=== PATIENT | female | born 1970 | race Two or more races ===

== ENCOUNTER → 2018-03-07 | Outpatient (CLI) | payer OTHER ==
--- NOTE | 2018-03-07 10:55 | MR ---
"EXAMINATION TYPE: MR lumbar spine wo/w con DATE OF EXAM: 03/07/2018 COMPARISON: NONE HISTORY: Lumbago w/sciatica TECHNIQUE: Multiplanar, multisequence images of the lumbar spine were acquired utilizing [address] gadolinium contrast. FINDINGS: There is abnormal diffuse decreased signal on the L1 vertebral body more pronounced at the mid and inferior vertebral body with abnormal decreased T2 signal in the normal enhancement throughou t. Similar findings are also appreciated within the T11 vertebral body such as on T1 nonfat sat sagit danielle image 7 and postcontrast image 9 in addition to Schmorl's node formation of the superior endplate . Findings are highly concerning for metastatic disease in this patient with a history of breast canc er. Remainder of the bone marrow signal appears mildly heterogenous but within normal limits. Additio lynne there is bowing of the posterior inferior cortex of the L1 vertebral body, partially related to pathologic bone marrow replacement and partially related to degenerative disc disease with inferior Schmorl's node formation. At L1 there is extent of the abnormal bone marrow signal into the left pedi oneal with expansion of the left pedicle. Multilevel small perineural cysts are present. The conus medullaris is unremarkable terminating at L1. Multilevel disc desiccation is seen throughou t the lumbar spine. T12-L1: There is disc desiccation without focal disc herniation, spinal canal stenosis or neural fora bria narrowing. L1-L2: Expansion of the left lateral inferior vertebral body of L1 and pedicle create severe left ryan ral foraminal narrowing in combination with degenerative disc disease. The right neural foramen is pa tent. There is mild spinal canal stenosis at the left lateral margin of the spinal canal secondary to the above findings. L2-L3: There is a small broad-based disc bulge without neural foraminal narrowing or spinal canal anmol nosis. L3-L4: There is a small broad-based disc bulge without spinal canal stenosis or neural foraminal narr owing. L4-L5: A small broad-based disc bulge is present in combination with facet arthropathy and ligamentum flavum buckling however there is no spinal canal stenosis or neural foraminal narrowing appreciated. L5-S1: A bilobed broad-based disc bulge is seen without significant spinal canal stenosis or neural f oraminal narrowing. Mild facet arthropathy and ligamentum flavum buckling are also present. IMPRESSION: 1. Abnormal bone marrow signal and enhancement of the L1 vertebral body with expansion and extent int o the pedicle creating severe left neural foraminal narrowing and mild left lateral spinal canal sten osis. Finding is highly suspicious for metastatic disease in this patient with a history of breast ca ncer as there is also abnormal enhancement. 2. Abnormal bone marrow signal and enhancement of the T11 vertebral body also highly suspicious for m etastatic disease. 3. Multilevel degenerative disc disease, mild in degree without additional regions of spinal canal st enosis or neural foraminal narrowing. A Yellow level critical message alert has been initiated for Benjamin Villarreal MD via the [employer] 36 0 | Critical Results System on 03/07/2018 10:52 AM. This message alert has been sent to Benjamin Villarreal MD via the preferences provided by the clinician for the receipt of Radiology Critical Findings. Wy ssage ID [id number]."
== END | disposition home or self-care (01) ==
LOC: RADMRIMAIN 07:40
PROVIDERS: ATTEND Family Medicine
DX: M48.061 Spinal stenosis, lumbar region without neurogenic claudication (principal); M99.73 Connective tissue and disc stenosis of intervertebral foramina of lumbar region; M51.16 Intervertebral disc disorders with radiculopathy, lumbar region; R93.7 Abnormal findings on diagnostic imaging of other parts of musculoskeletal system
CPT/HCPCS: 72158; A9581

== ENCOUNTER → 2018-03-25 | Outpatient (CLI) | payer OTHER ==
--- NOTE | 2018-03-25 12:48 | CT ---
EXAMINATION TYPE: CT ChestAbdPelvis w con DATE OF EXAM: 03/25/2018 COMPARISON: Prior PET/CT February 19, 2015. HISTORY: Follow up breast cancer diagnosed 2014, recent abnormal lumbar spine MRI. CT DLP: 1839 mGycm. Automated Exposure Control for Dose Reduction was Utilized. CONTRAST: CT scan of the thorax, abdomen and pelvis is performed with IV Contrast, patient injected with 100 mL of Isovue 300. FINDINGS: LUNGS: There are innumerable scattered nodules involving bilateral upper and lower lungs consistent w ith metastatic disease, one of largest posterior right upper lobe measures 1.4 x 1.2 cm axial image 1 5. For reference largest heterogeneous lobulated nodule or mass is in the medial left lung base measu ring 4.1 x 3.7 cm axial image 41. There is incidental azygos lobe/fissure. MEDIASTINUM: There are no greater than 1 cm hilar or mediastinal lymph nodes. No pericardial effusi on is seen. OTHER: Left-sided mastectomy with subpectoral breast implant is noted. LIVER/GB: There are new innumerable oval heterogeneous hypodense lesions throughout the liver consist ent with metastatic disease, for reference there is 6.0 cm lesion long axis and the right hepatic lob e axial image 51. PANCREAS: No significant abnormality is seen. SPLEEN: Subcentimeter splenule anterior splenic hilum on axial image 50 is redemonstrated. ADRENALS: No significant abnormality is seen. KIDNEYS: No significant abnormality is seen. BOWEL: Oral contrast does not reach colonic level. No suspicious small or large bowel dilatation is s een. GENITAL ORGANS: No gross abnormality seen. LYMPH NODES: No greater than 1cm abdominal or pelvic lymph nodes are appreciated. OSSEOUS STRUCTURES: Diffuse osseous metastatic disease is present. There is destructive expansile les ion involving posterior lateral right sixth rib near axial image 23 noted. There is destructive lesio n involving the left L1 vertebra with moderate compression, there is some extension into the neural f oramina and anterior lateral spinal canal seen on axial image 63. This correlates with recent MRI lum bar spine March 07, 2018. There is additional lytic lesion involving right T11 vertebra coronal image 5 5. OTHER: No significant additional abnormality is seen. IMPRESSION: There is new hepatic, osseous, and pulmonary metastatic disease as detailed above.
--- NOTE | 2018-03-25 14:43 | NM ---
EXAMINATION TYPE: NM bone scan whole body DATE OF EXAM: 03/25/2018 COMPARISON: CT dated 03/25/2019 HISTORY: C50.819 Breast Cancer,Z03.89 Observe for Mets Delayed whole-body scanning was performed following the injection of 26.1 mCi Tc 99m MDP. Images acq uired 4.5 hours post injection. FINDINGS: 2 warm foci of increased radiotracer accumulation are noted to involve the right posterior and tibco developer olateral rib #6. No additional abnormal uptake involving the ribs are seen. There is pedicular uptake noted to involve L1 and more diffuse uptake noted to involve T11. Given CT findings the examination is compatible metastatic disease. No additional areas of abnormal increased radiotracer accumulation are seen. Mild degenerative uptake in the shoulders, sternoclavicular joints noted. IMPRESSION: 1. Findings compatible with metastatic disease to the right rib #6, T11 and L1.
== END ==
LOC: RADCTMAIN 07:49
PROVIDERS: ATTEND Internal Medicine Hematology & Oncology
DX: C50.819 Malignant neoplasm of overlapping sites of unspecified female breast (principal); C79.51 Secondary malignant neoplasm of bone; C78.7 Secondary malignant neoplasm of liver and intrahepatic bile duct; C78.01 Secondary malignant neoplasm of right lung; C78.02 Secondary malignant neoplasm of left lung
CPT/HCPCS: 71260; 74177; 78306; A9503; Q9967

== ENCOUNTER → 2018-04-08 | Day surgery (SDC) | payer OTHER ==
[2018-04-08 09:19] VITALS: RESP 16; TEMP 98.1
[2018-04-08 09:30] LABS: Mean Platelet Volume 6.5; Platelet Count 194 k/uL (150-450)
[2018-04-08 09:31] LABS: INR 0.9 (<1.2); Prothrombin Time 9.3 sec (9.0-12.0)
[2018-04-08 15:19] VITALS: PULSE 84
[2018-04-08 15:23] VITALS: BP 94/54
--- NOTE | 2018-04-08 15:23 | US ---
EXAMINATION TYPE: US biopsy liver DATE OF EXAM: 04/08/2018 HISTORY: Liver mass. FINDINGS: Maximal barrier technique was utilized. The skin overlying a suitable path to the patient' s mass was localized with ultrasound and the overlying skin prepped and draped. Ultrasound was utili zed with sterile technique. Lidocaine was used for local anesthesia. A skin parminder was made with a sc alpel. An 18-gauge needle was advanced under direct ultrasound guidance and core specimen obtained o f the mass within the right lobe. Specimen submitted in formalin to Pathology. Following the proced ure, hemostasis achieved and the patient is discharged in stable condition without complication. IMPRESSION:STATUS POST ULTRASOUND GUIDED CORE BIOPSY OF liver MASS, PATHOLOGY IS PENDING. THIS PROCE DURE IS PERFORMED BY THE UNDERSIGNED.
== END | disposition home or self-care (01) ==
LOC: RADPROMAIN 08:52
PROVIDERS: ATTEND Internal Medicine Hematology & Oncology
DX: C78.7 Secondary malignant neoplasm of liver and intrahepatic bile duct (principal); C50.919 Malignant neoplasm of unspecified site of unspecified female breast
CPT/HCPCS: 47000; 76942; 85049; 85610; 88307; 88341; 88342

== ENCOUNTER → 2018-04-15 | Outpatient (CLI) | payer OTHER ==
--- NOTE | 2018-04-15 12:13 | CT ---
EXAMINATION TYPE: CT angio chest DATE OF EXAM: 04/15/2018 COMPARISON: 03/25/2018 HISTORY: Shortness of Breath CT DLP: 493 mGycm. Automated Exposure Control for Dose Reduction was Utilized. CONTRAST: CTA scan of the thorax is performed with IV Contrast, patient injected with 100 ml mL of Isovue 370, pulmonary embolism protocol. MIP Images are created on CT scanner and reviewed. FINDINGS: LUNGS: There is continued progression of metastatic disease with innumerable pulmonary nodules and th e largest in the left lung base previously measuring 3.7 x 4.1 cm and now measuring 4.5 x 5.5 cm. The re is also partial visualization of the innumerable hepatic metastases that are better defined on the prior examination given phase of contrast although the largest right hepatic lobe lesion appeared to measure 6.0 cm on the prior exam and currently measures approximately 6.2 cm. Incidental note of an azygous lobe and azygous fissure are again noted. Destructive metastatic right fifth rib lesion creates pleural thickening. No new pleural effusion or pneumothorax. MEDIASTINUM: There is satisfactory enhancement of the pulmonary artery and its branches, there is no CT evidence for pulmonary embolism. Mediastinal adenopathy is most pronounced in the hilar regions wi th the largest conglomeration in the left infrahilar region measuring 1.8 cm and within the right hil ar region measuring 1.6 cm. Subcarinal adenopathy is also seen with prominent paratracheal lymph node s. No cardiomegaly or pericardial effusion is seen. OTHER: Left breast implant is incidentally identified. Multifocal osseous metastasis as seen on the p rior chest, abdomen and pelvis CT dated 03/25/2018 is only partially visualized at the T11 vertebral l evel in addition to the previously described right fifth rib destructive lesion. IMPRESSION: 1. No evidence of pulmonary embolus. 2. Progression of metastatic disease with redemonstration of innumerable pulmonary nodules and hepati c metastasis as well as multifocal osseous metastasis. The largest left basilar pulmonary nodule now measures up to 4.1 cm and previously measured up to 5.5 cm. Findings discussed with the ordering phys joe at 1210 on 04/15/2018.
== END | disposition home or self-care (01) ==
LOC: RADCTMAIN 10:39
PROVIDERS: ATTEND Radiology Radiation Oncology
DX: C78.7 Secondary malignant neoplasm of liver and intrahepatic bile duct (principal); C79.51 Secondary malignant neoplasm of bone; C80.1 Malignant (primary) neoplasm, unspecified; R91.1 Solitary pulmonary nodule; R06.02 Shortness of breath; Z88.0 Allergy status to penicillin
CPT/HCPCS: 71275; Q9967

== ENCOUNTER → 2018-05-05 | Outpatient (CLI) | payer OTHER ==
--- NOTE | 2018-05-05 12:09 | CT ---
EXAMINATION TYPE: CT angio chest DATE OF EXAM: 05/05/2018 COMPARISON: 04/15/2018 HISTORY: 47-year-old female SOB, history of lung CA TECHNIQUE: Contiguous axial scanning of the chest performed with IV Contrast, patient injected with 5 6 mL of Isovue 370. Coronal/sagittal MIP reconstructions performed. CT DLP: 183.0 mGycm Automated exposure control for dose reduction was used. FINDINGS: Left breast implant is redemonstrated. Heart upper limits of normal in size without pericardial effusion. Aorta normal caliber with bowing configuration to the aortic arch. There are similar prominent 1.2 cm subcarinal lymph node. Otherwise, no thoracic lymphadenopathy seen. Innumerable bilateral pulmonary metastases redemonstrated showing increasing size from prior exam, fo r example, confluent nodules in the left upper lobe now measure up to 3.1 cm versus 2.7 cm on 04/15/20 18, nodule in the superior segment right lower lobe measures 2.1 cm versus 1.7 cm, previously, larges t mass medial left base measures 5.9 cm versus 5.6 cm, previously. Normal variant azygos fissure. Satisfactory opacification of the pulmonary arterial system without evidence for pulmonary embolus. Destructive soft tissue lesion of the posterolateral right fifth rib is slightly larger measuring up to 1.9 cm thick versus 1.7 cm, previously. Numerous hepatic metastases are redemonstrated, largest measuring at least 6.3 cm relatively stable f rom prior. Hilar splenule is noted. Scattered lytic lesions throughout the spine are redemonstrated particularly on the right at T1 and T 5 probably at L1 also, only partially visualized. IMPRESSION: 1. NO EVIDENCE FOR PULMONARY EMBOLUS. 2. SEVERE BURDEN OF METASTATIC DISEASE TO THE LUNGS. THERE ARE INNUMERABLE NODULES AND MASSES WHICH A RE INCREASING IN SIZE COMPARED TO 04/15/2018, LARGEST NOW MEASURING 5.9 CM AT THE LEFT BASE. 3. DESTRUCTIVE SOFT TISSUE METASTASIS INVOLVING THE RIGHT POSTERIOR FIFTH RIB IS SLIGHTLY LARGER. 4. MULTIPLE HEPATIC METASTASES REDEMONSTRATED AND A FEW LYTIC METASTASES WITHIN THE THORACIC SPINE AL SO REDEMONSTRATED.
== END | disposition home or self-care (01) ==
LOC: RADCTMAIN 11:28
PROVIDERS: ATTEND Internal Medicine Hematology & Oncology
DX: C78.01 Secondary malignant neoplasm of right lung (principal); C78.02 Secondary malignant neoplasm of left lung; C79.89 Secondary malignant neoplasm of other specified sites; C78.7 Secondary malignant neoplasm of liver and intrahepatic bile duct; C79.51 Secondary malignant neoplasm of bone; C80.1 Malignant (primary) neoplasm, unspecified; R91.8 Other nonspecific abnormal finding of lung field; Z88.0 Allergy status to penicillin
CPT/HCPCS: 71275; Q9967

== ENCOUNTER 2018-05-16 22:35 | Observation (INO) | payer OTHER ==
[2018-05-16] MEDS ORDERED: SODIUM CHLORIDE 0.9% 1,000 ML IV SCH (23:00)
[2018-05-16 23:41] LABS: Basophils # (A) 0.1 k/uL (0-0.2); Basophils % (A) 0 %; Eosinophils # (A) 0.2 k/uL (0-0.7); Eosinophils % (A) 1 %; HCT 38.6 % (34.0-46.0); HGB 12.4 gm/dL (11.4-16.0); Lymphocytes % (A) 10 %; MCH 28.3 pg (25.0-35.0); MCHC 32.1 g/dL (31.0-37.0); MCV 88.2 fL (80.0-100.0); Mean Platelet Volume 7.5; Monocytes # (A) 1.3 k/uL (0-1.0); Monocytes % (A) 7 %; Neutrophils # (A) 16.3 k/uL (1.3-7.7); Neutrophils % (A) 81 %; Platelet Count 301 k/uL (150-450); RBC 4.38 m/uL (3.80-5.40); RDW 15.7 % (11.5-15.5); WBC 20.1 k/uL (3.8-10.6)
[2018-05-16 23:48] LABS: INR 1.1 (<1.2); Partial Thromboplastin Time 23.1 sec (22.0-30.0); Prothrombin Time 10.9 sec (9.0-12.0)
[2018-05-16 23:51] LABS: ALT 65 U/L (9-52); AST 223 U/L (14-36); Alkaline Phosphatase 563 U/L (38-126); Anion Gap 10 mmol/L; Blood Urea Nitrogen 3 mg/dL (7-17); Calcium 8.5 mg/dL (8.4-10.2); Carbon Dioxide 21 mmol/L (22-30); Chloride 104 mmol/L (98-107); Glucose 111 mg/dL (74-99); Potassium 3.8 mmol/L (3.5-5.1); Sodium 135 mmol/L (137-145); Total Bilirubin 2.1 mg/dL (0.2-1.3); Total Protein 7.5 g/dL (6.3-8.2)
[2018-05-17] MEDS: SODIUM CHLORIDE 0.9% 500 ML IV SCH (00:20)
--- NOTE | 2018-05-17 00:22 | ED ---
General Adult HPI - General Chief complaint: Shortness of Breath Stated complaint: Diff breathing, anxiety Time Seen by Provider: 05/16/18 22:51 Source: patient, family Mode of arrival: ambulatory Limitations: no limitations - History of Present Illness Initial comments: Cinda is a 47 yo female with recently diagnosed stage 4 metastatic breast cancer , she has recently undergone radiation therapy for treatment of spinal mets and is planning to begin chemotherapy next week. Patient is brought to the ED today by her family due to difficulty breathing. Patient reports she feels like she cannot catch her breath. She denies any recent fevers, chills, she states that she has nearly continuous nausea but no vomiting. Family expresses concern that she has not been eating or drinking well. Patient denies any abdominal pain patient reports she can feel her heart racing but denies any chest pain. She denies any previous cardiac history. She reports a prior to the diagnosis of breast cancer she was healthy and not on any medications. - Related Data Home Medications Medication Instructions Recorded Confirmed No Known Home Medications 05/16/18 05/16/18 Allergies Allergy/AdvReac Type Severity Reaction Status Date / Time Penicillins AdvReac shaky Verified 05/16/18 23:07 Review of Systems ROS Statement: Those systems with pertinent positive or pertinent negative responses have been documented in the HPI. ROS Other: All systems not noted in ROS Statement are negative. Constitutional: Denies: fever ENT: Denies: throat pain Respiratory: Reports: dyspnea. Denies: cough, wheezes, hemoptysis Cardiovascular: Reports: palpitations Endocrine: Reports: fatigue Gastrointestinal: Reports: nausea. Denies: abdominal pain, vomiting Genitourinary: Denies: urgency, dysuria Musculoskeletal: Reports: back pain Skin: Reports: other (Pallor). Denies: rash Neurological: Reports: weakness (Generalized) Psychiatric: Denies: anxiety, depression Hematological/Lymphatic: Reports: easy bleeding, easy bruising Past Medical History Past Medical History: Cancer Additional Past Medical History / Comment(s): breast, Liver mass and vertebrae mass History of Any Multi-Drug Resistant Organisms: None Reported Past Surgical History: Tubal Ligation Additional Past Surgical History / Comment(s): breast biopsy, left mastectomy Past Anesthesia/Blood Transfusion Reactions: No Reported Reaction Past Psychological History: Anxiety, Depression Smoking Status: Never smoker Past Alcohol Use History: None Reported Past Drug Use History: None Reported - Past Family History Sister(s) Family Medical History: Deep Vein Thrombosis (DVT) General Exam Limitations: no limitations General appearance: alert, in distress Head exam: Present: atraumatic, normocephalic Eye exam: Present: normal appearance, PERRL ENT exam: Present: normal exam Neck exam: Present: normal inspection Respiratory exam: Present: other (Tachypnea). Absent: wheezes Cardiovascular Exam: Present: tachycardia GI/Abdominal exam: Present: soft Rectal exam: Present: deferred Extremities exam: Present: full ROM Neurological exam: Present: alert, oriented X3 Psychiatric exam: Present: normal affect, normal mood Skin exam: Present: warm, dry, pallor Course Vital Signs 05/16/18 05/16/18 05/16/18 22:37 22:56 23:31 Temperature 99 F Pulse Rate 137 H 121 H Respiratory 20 24 22 Rate Blood Pressure 111/75 127/62 O2 Sat by Pulse 92 L 97 Oximetry - Reevaluation(s) Reevaluation #1: Patient tachycardia improving after IV fluids, patient's oxygen saturation 97-99 % with blow-by oxygen 05/17/18 01:03 EKG Findings - EKG Comments: EKG Findings:: EKG at 2315 rate is 128, there is a poor baseline, leads V2 and V3 appear to have P waves but this is not evident in all leads, it is a narrow complex tachycardia with a PVC noted Medical Decision Making - Medical Decision Making The patient was seen and evaluated, history was obtained from the patient and her family at bedside. This is a patient with known metastatic disease, undergoing radiation therapy, scheduled to begin chemotherapy. Not currently immunocompromised with a high risk for pulmonary embolus him Labs and imaging were ordered Labs with multiple significant abnormalities including leukocytosis of unknown cause Also noted to have elevated transaminase levels, likely related to her metastatic disease Troponin is negative CT of the chest reveals diffuse metastatic disease but no evidence of acute pulmonary embolism Patient was reevaluated after receiving IV fluids her tachycardia has improved to the 1 teens, she is receiving blow-by oxygen because she will not tolerate a nasal cannula. Oxygen saturations are now in the high 90s. Patient remains slightly tachypneic and continues to complain of pain in her back. The medication was ordered At this time and will fill the patient is safe for discharge home, I feel that considering her new requirement for oxygen, her tachypnea, tachycardia and her diffuse metastatic disease she does warrant admission to the hospital. I will admit the patient to the selective floor for telemetry and continuous pulse ox monitoring. The patient's oncologist Dr. Anna was consulted to evaluate the patient while she is admitted - Lab Data Result diagrams: 05/16/18 23:25 05/16/18 23:25 Lab Results 05/16/18 05/16/18 05/16/18 Range/Units 23:25 23:25 23:25 WBC 20.1 H (3.8-10.6) k/uL RBC 4.38 (3.80-5.40) m/uL Hgb 12.4 (11.4-16.0) gm/dL Hct 38.6 (34.0-46.0) % MCV 88.2 (80.0-100.0) fL MCH 28.3 (25.0-35.0) pg MCHC 32.1 (31.0-37.0) g/dL RDW 15.7 H (11.5-15.5) % Plt Count 301 (150-450) k/uL Neutrophils % 81 % Lymphocytes % 10 % Monocytes % 7 % Eosinophils % 1 % Basophils % 0 % Neutrophils # 16.3 H (1.3-7.7) k/uL Lymphocytes # 2.0 (1.0-4.8) k/uL Monocytes # 1.3 H (0-1.0) k/uL Eosinophils # 0.2 (0-0.7) k/uL Basophils # 0.1 (0-0.2) k/uL PT (9.0-12.0) sec INR (<1.2) APTT (22.0-30.0) sec Sodium 135 L (137-145) mmol/L Potassium 3.8 (3.5-5.1) mmol/L Chloride 104 (98-107) mmol/L Carbon Dioxide 21 L (22-30) mmol/L Anion Gap 10 mmol/L BUN 3 L (7-17) mg/dL Creatinine 0.30 L (0.52-1.04) mg/dL Est GFR (CKD-EPI)AfAm >90 (>60 ml/min/1.73 sqM) Est GFR (CKD-EPI)NonAf >90 (>60 ml/min/1.73 sqM) Glucose 111 H (74-99) mg/dL Plasma Lactic Acid Sander 2.0 (0.7-2.0) mmol/L Calcium 8.5 (8.4-10.2) mg/dL Total Bilirubin 2.1 H (0.2-1.3) mg/dL AST 223 H (14-36) U/L ALT 65 H (9-52) U/L Alkaline Phosphatase 563 H (38-126) U/L Troponin I (0.000-0.034) ng/mL Total Protein 7.5 (6.3-8.2) g/dL Albumin 3.0 L (3.5-5.0) g/dL Urine Color Urine Appearance (Clear) Urine pH (5.0-8.0) Ur Specific Volcano (1.001-1.035) Urine Protein (Negative) Urine Glucose (UA) (Negative) Urine Ketones (Negative) Urine Blood (Negative) Urine Nitrite (Negative) Urine Bilirubin (Negative) Urine Urobilinogen (<2.0) mg/dL Ur Leukocyte Esterase (Negative) 05/16/18 05/16/18 05/17/18 Range/Units 23:25 23:25 00:22 WBC (3.8-10.6) k/uL RBC (3.80-5.40) m/uL Hgb (11.4-16.0) gm/dL Hct (34.0-46.0) % MCV (80.0-100.0) fL MCH (25.0-35.0) pg MCHC (31.0-37.0) g/dL RDW (11.5-15.5) % Plt Count (150-450) k/uL Neutrophils % % Lymphocytes % % Monocytes % % Eosinophils % % Basophils % % Neutrophils # (1.3-7.7) k/uL Lymphocytes # (1.0-4.8) k/uL Monocytes # (0-1.0) k/uL Eosinophils # (0-0.7) k/uL Basophils # (0-0.2) k/uL PT 10.9 (9.0-12.0) sec INR 1.1 (<1.2) APTT 23.1 (22.0-30.0) sec Sodium (137-145) mmol/L Potassium (3.5-5.1) mmol/L Chloride (98-107) mmol/L Carbon Dioxide (22-30) mmol/L Anion Gap mmol/L BUN (7-17) mg/dL Creatinine (0.52-1.04) mg/dL Est GFR (CKD-EPI)AfAm (>60 ml/min/1.73 sqM) Est GFR (CKD-EPI)NonAf (>60 ml/min/1.73 sqM) Glucose (74-99) mg/dL Plasma Lactic Acid Sander (0.7-2.0) mmol/L Calcium (8.4-10.2) mg/dL Total Bilirubin (0.2-1.3) mg/dL AST (14-36) U/L ALT (9-52) U/L Alkaline Phosphatase (38-126) U/L Troponin I <0.012 (0.000-0.034) ng/mL Total Protein (6.3-8.2) g/dL Albumin (3.5-5.0) g/dL Urine Color Yellow Urine Appearance Clear (Clear) Urine pH 7.0 (5.0-8.0) Ur Specific Volcano 1.005 (1.001-1.035) Urine Protein Negative (Negative) Urine Glucose (UA) Negative (Negative) Urine Ketones 1+ H (Negative) Urine Blood Negative (Negative) Urine Nitrite Negative (Negative) Urine Bilirubin Negative (Negative) Urine Urobilinogen <2.0 (<2.0) mg/dL Ur Leukocyte Esterase Negative (Negative) Disposition Clinical Impression: Shortness of breath at rest, Hypoxia, Metastatic breast cancer, Elevated transaminase level, Leukocytosis, SIRS (systemic inflammatory response syndrome) Disposition: ADMITTED IP TO THIS HOSP Condition: Poor Instructions: Generalized Anxiety Disorder (ED) Referrals: Benjamin Villarreal MD [Primary Care Provider] - 1-2 days Decision Time: 01:18
[2018-05-17 00:27] LABS: Appearance,Urine Clear (Clear); Bilirubin,Urine Negative (Negative); Blood,Urine Negative (Negative); Color,Urine Yellow; Glucose,Urine (UA) Negative (Negative); Ketones,Urine 1+ (Negative); Leukocyte Esterase,Urine Negative (Negative); Nitrite,Urine Negative (Negative); Protein,Urine Negative (Negative); Specific Gravity,Urine 1.005 (1.001-1.035); Urobilinogen,Urine <2.0 mg/dL (<2.0)
--- NOTE | 2018-05-17 01:06 | CT ---
EXAMINATION TYPE: CT chest angio for PE DATE OF EXAM: 05/17/2018 COMPARISON: 05/05/2018 HISTORY: R/O PE, Rt side paib, back pain CT DLP: 311.10 mGycm Automated exposure control for dose reduction was used. CONTRAST: CT Chest for pulmonary embolism performed with with IV Contrast, patient injected with 60 mL of Isovu e 370. FINDINGS: There are 3-D post processed images. There are numerous nodular masslike densities throughout the lungs that measure up to 3 cm. There is conglomeration. Heart size is normal. There is no pericardial effusion. There is no pleural effusion. Thoracic aorta is intact. I see no filling defects in the pulmonary arteries. There are destructive changes in T11 and T5 vertebral bodies. There is variable enhancement of the liver consistent with mu ltiple masses. IMPRESSION: No evidence of pulmonary embolism. Extensive pulmonary metastatic disease. Extensive hepatic metastat ic disease. Thoracic vertebral body metastatic disease. No significant change compared to last exam.
[2018-05-17] MEDS ORDERED: NALOXONE 0.4 MG/ML 1 ML VIAL IV PRN (01:18)
[2018-05-17] MEDS ORDERED: MORPHINE SULFATE 4 MG/ML SYRINGE IVP STA (01:21)
[2018-05-17] MEDS ORDERED: SODIUM CHLORIDE 0.9% 1,000 ML IV SCH (01:30)
[2018-05-17] MEDS ORDERED: IBUPROFEN 600 MG TAB PO PRN (01:52)
[2018-05-17] MEDS ORDERED: HYDROcodone/APAP 5-325MG 1 EACH TAB PO PRN (01:55)
[2018-05-17] MEDS ORDERED: ONDANSETRON 4 MG/2 ML VIAL IVP STA (02:16)
[2018-05-17 04:16] VITALS: TEMP 97.6
[2018-05-17 07:40] VITALS: RESP 18
[2018-05-17 08:56] VITALS: BP 102/63; PULSE 102
--- NOTE | 2018-05-17 21:10 | P.HPIM ---
History of Present Illness Patient Left AMA Past Medical History Past Medical History: Cancer Additional Past Medical History / Comment(s): breast, Liver mass and vertebrae mass History of Any Multi-Drug Resistant Organisms: None Reported Past Surgical History: Tubal Ligation Additional Past Surgical History / Comment(s): breast biopsy, left mastectomy Past Anesthesia/Blood Transfusion Reactions: No Reported Reaction Past Psychological History: Anxiety, Depression Smoking Status: Never smoker Past Alcohol Use History: None Reported Past Drug Use History: None Reported - Past Family History Sister(s) Family Medical History: Deep Vein Thrombosis (DVT) Medications and Allergies Home Medications Medication Instructions Recorded Confirmed Type HYDROcodone/APAP 5-325MG [Dixon 1 tab PO Q8HR PRN 05/17/18 05/17/18 History 5-325] Methocarbamol [Robaxin] 500 mg PO Q8HR PRN 05/17/18 05/17/18 History Allergies Allergy/AdvReac Type Severity Reaction Status Date / Time Penicillins AdvReac shaky Verified 05/16/18 23:07 Physical Exam Vitals: Vital Signs Temp Pulse Resp BP Pulse Ox 05/17/18 11:15 90 L 05/17/18 10:00 18 88 L 05/17/18 08:54 102 H 18 102/63 99 05/17/18 07:38 111 H 18 132/68 92 L 05/17/18 07:11 100 20 102/63 95 05/17/18 05:08 96 20 101/60 93 L 05/17/18 04:13 97.6 F 102 H 18 101/61 96 05/17/18 02:22 111 H 20 116/70 99 05/17/18 01:16 99.2 F 110 H 20 115/71 95 05/16/18 23:31 121 H 22 127/62 97 05/16/18 22:56 24 05/16/18 22:37 99 F 137 H 20 111/75 92 L Results CBC & Chem 7: 05/16/18 23:25 05/16/18 23:25 Labs: Abnormal Lab Results - Last 24 Hours (Table) 05/16/18 05/16/18 05/17/18 Range/Units 23:25 23:25 00:22 WBC 20.1 H (3.8-10.6) k/uL RDW 15.7 H (11.5-15.5) % Neutrophils # 16.3 H (1.3-7.7) k/uL Monocytes # 1.3 H (0-1.0) k/uL Sodium 135 L (137-145) mmol/L Carbon Dioxide 21 L (22-30) mmol/L BUN 3 L (7-17) mg/dL Creatinine 0.30 L (0.52-1.04) mg/dL Glucose 111 H (74-99) mg/dL Total Bilirubin 2.1 H (0.2-1.3) mg/dL AST 223 H (14-36) U/L ALT 65 H (9-52) U/L Alkaline Phosphatase 563 H (38-126) U/L Albumin 3.0 L (3.5-5.0) g/dL Urine Ketones 1+ H (Negative) Microbiology - Last 24 Hours (Table) 05/17/18 00:22 Urine Culture - Preliminary Urine,Voided
--- NOTE | 2018-05-17 21:11 | P.DS ---
Providers Date of admission: 05/17/18 01:20 Attending physician: Justice Lafleur MD Consults: 05/17/18 01:19 Consult Physician Urgent Consulting Provider: Thiago Garay Consult Reason/Comments: established patient, worsening mets Do you want consulting provider notified?: Yes, Notify in am Primary care physician: Benjamin Villarreal [facility] Course: left AMA Patient Condition at Discharge: Poor Plan - Discharge Summary New Discharge Prescriptions: No Action Methocarbamol [Robaxin] 500 mg PO Q8HR PRN PRN Reason: Pain HYDROcodone/APAP 5-325MG [[place] 5-325] 1 tab PO Q8HR PRN PRN Reason: Pain Discharge Medication List HYDROcodone/APAP 5-325MG [[place] 5-325] 1 tab PO Q8HR PRN 05/17/18 [History] Methocarbamol [Robaxin] 500 mg PO Q8HR PRN 05/17/18 [History] Follow up Appointment(s)/Referral(s): Benjamin Villarreal MD [Primary Care Provider] - 1-2 days Patient Instructions/Handouts: Generalized Anxiety Disorder (ED) Discharge Disposition: Left Against Medical Advice
== END 2018-05-17 13:08 | disposition left against medical advice (07) ==
LOC: EC 22:35 → INTOOBSV 05-17 01:20 → 6SEL 05-17 01:20 → UNDODISIN 05-17 13:08
PROVIDERS: ADMIT Internal Medicine; ATTEND Internal Medicine
DX: R09.02 Hypoxemia (principal); C79.51 Secondary malignant neoplasm of bone; R65.10 Systemic inflammatory response syndrome (SIRS) of non-infectious origin without acute organ dysfunction; C78.7 Secondary malignant neoplasm of liver and intrahepatic bile duct; C50.912 Malignant neoplasm of unspecified site of left female breast; D72.829 Elevated white blood cell count, unspecified; F32.9 Major depressive disorder, single episode, unspecified; F41.9 Anxiety disorder, unspecified; Z90.12 Acquired absence of left breast and nipple; R11.0 Nausea; Z88.0 Allergy status to penicillin; R00.0 Tachycardia, unspecified; Z83.2 Family history of diseases of the blood and blood-forming organs and certain disorders involving the immune mechanism; Z92.3 Personal history of irradiation; R74.0 Nonspecific elevation of levels of transaminase and lactic acid dehydrogenase [LDH]; R06.82 Tachypnea, not elsewhere classified; Z53.21 Procedure and treatment not carried out due to patient leaving prior to being seen by health care provider
CPT/HCPCS: 96361; 96375; 99285; 96374; 36415; 93005; 80053; 83605; 84484; 85025; 85610; 85730; 81003; 87040; 87086; 71275; G0378; J2270; J2405; Q9967

== ENCOUNTER → 2018-07-03 | Outpatient (CLI) | payer OTHER ==
[2018-07-03 11:08] LABS: Blood Urea Nitrogen 3 mg/dL (7-17)
--- NOTE | 2018-07-03 15:15 | CT ---
EXAMINATION TYPE: CT ChestAbdPelvis w con DATE OF EXAM: 07/03/2018 COMPARISON: 05/17/2018 and 03/25/2018. HISTORY: 48-year-old female Follow up breast CA. Observe for metastases. TECHNIQUE: Contiguous axial scanning of the chest, abdomen, and pelvis performed with IV Contrast, pa tient injected with 100 mL of Isovue 300. Delayed images through the kidneys were obtained. Coronal/s agittal reconstructions performed. CT DLP: 1281 mGycm Automated exposure control for dose reduction was used. FINDINGS: Chest: Heart normal size without pericardial effusion. Aorta normal caliber with conventional arch vessel branching anatomy. No thoracic lymphadenopathy by CT size criteria. Prior left mastectomy and left breast reconstruction . Innumerable lateral pulmonary nodules and masses show treatment response with decrease in size of 2 n odules. For example, the dominant medial left basilar mass now measures 3.4 cm versus 6.1 cm, previou sly in the left upper lobe mass measures 1.2 cm versus 3.7 cm, previously. Normal variant azygous fissure. No consolidation or pleural effusion. ABDOMEN: Small hiatal hernia. Innumerable hepatic lesions. These show increasing hypodensity is compared to prior exam likely on th e basis of posttreatment effect largest in the peripheral right liver lobe measuring 6.1 cm versus 7. 4 cm, previously. Portal venous system is patent. No biliary ductal dilatation. Gallbladder, adrenal glands, kidneys, and pancreas appear within normal limits. Spleen is borderline enlarged at 13.9 cm with a hilar splenule. No dilated small bowel, free fluid, or free air. Normal appendix. Mild stool in the right-sided colon. The remainder of the colon is collapsed. No per icolonic inflammatory change. No mesenteric or retroperitoneal lymphadenopathy. Pelvis: Bladder partially distended. Uterus and both ovaries are visualized. No abnormal fluid collection in the pelvis or pelvic lymphadenopathy. Bones: Destructive right fifth posterolateral rib lesion shows decreasing soft tissue bulk in some healing c hange of the rib. Redemonstrated lytic vertebral body lesions, especially T1 T5, T11, and L1 with progressive periphera l sclerosis and slight decrease in size suggesting treatment response. IMPRESSION: 1. STATUS POST LEFT MASTECTOMY AND BREAST RECONSTRUCTION. 2. PARTIAL OR EVOLVING TREATMENT RESPONSE WITH SIGNIFICANT IMPROVEMENT IN THE INNUMERABLE NODULES/MAS SES. FOR EXAMPLE, THE DOMINANT MEDIAL LEFT BASILAR MASS NOW MEASURES 3.4 CM VERSUS 6.1 CM. 3. MULTIPLE HEPATIC LESIONS ARE NOW HYPODENSE AND HAVE ALSO DECREASED IN SIZE, FOR EXAMPLE, IN THE PE RIPHERAL RIGHT LIVER LOBE MEASURING 6.1 CM VERSUS 7.4 CM, PREVIOUSLY. 4. THE RIGHT FIFTH RIB LESION HAS DECREASED SOFT TISSUE BULK AND NOW SHOWS SOME INTERVAL BONY HEALING CHANGE AND THE THORACIC AND L1 VERTEBRAL BODY LESIONS SHOW HEALING SCLEROSIS AND SLIGHT DECREASE IN SIZE.
== END | disposition home or self-care (01) ==
LOC: RADCTMAIN 10:39
PROVIDERS: ATTEND Internal Medicine Hematology & Oncology
DX: C50.819 Malignant neoplasm of overlapping sites of unspecified female breast (principal); K76.9 Liver disease, unspecified; R91.8 Other nonspecific abnormal finding of lung field
CPT/HCPCS: 82565; 84520; 71260; 74177; 36415; Q9967

== ENCOUNTER 2018-08-14 20:13 | Emergency (ER) | payer OTHER ==
[2018-08-14] MEDS ORDERED: ONDANSETRON 4 MG/2 ML VIAL IVP STA (20:34)
[2018-08-14] MEDS ORDERED: SODIUM CHLORIDE 0.9% 500 ML 500 ML IV STA (20:34)
[2018-08-14] MEDS: SODIUM CHLORIDE 0.9% 1,000 ML IV STA (20:44)
--- NOTE | 2018-08-14 21:06 | ED ---
General Adult HPI - General Chief complaint: Nausea/Vomiting/Diarrhea Stated complaint: vomiting Time Seen by Provider: 08/14/18 20:15 Source: patient, RN notes reviewed Mode of arrival: wheelchair Limitations: no limitations - History of Present Illness Initial comments: This is a 48-year-old female who presents emergency Department complaining of nausea and vomiting since Saturday after her chemotherapy treatment. Patient states she also has generalized weakness. Patient has breast cancer diagnosed in 2015 now has metastatic disease to her liver and back. Patient denies any fever chills. Patient denies any chest pain difficulty breathing shortest breath. Patient denies any abdominal pain patient denies nausea vomiting diarrhea. Patient denies any headache patient denies numbness weakness. - Related Data Home Medications Medication Instructions Recorded Confirmed HYDROcodone/APAP 5-325MG [[place] 1 tab PO Q8HR PRN 05/17/18 08/14/18 5-325] ALPRAZolam [Xanax] 0.5 mg PO DAILY PRN 08/14/18 08/14/18 Dexamethasone 8 mg PO DIRECTED 08/14/18 08/14/18 Furosemide [Lasix] 40 mg PO DAILY 08/14/18 08/14/18 Morphine Sulfate [Ms Contin] 15 mg PO Q12HR PRN 08/14/18 08/14/18 Ondansetron HCl [Zofran] 4 mg PO Q4-6H PRN 08/14/18 08/14/18 Potassium Chloride ER [K-Dur 20] 20 meq PO DAILY 08/14/18 08/14/18 Allergies Allergy/AdvReac Type Severity Reaction Status Date / Time Penicillins AdvReac shaky Verified 08/14/18 21:08 Review of Systems ROS Statement: Those systems with pertinent positive or pertinent negative responses have been documented in the HPI. ROS Other: All systems not noted in ROS Statement are negative. Past Medical History Past Medical History: Cancer Additional Past Medical History / Comment(s): breast, Liver mass and vertebrae mass History of Any Multi-Drug Resistant Organisms: None Reported Past Surgical History: Tubal Ligation Additional Past Surgical History / Comment(s): breast biopsy, left mastectomy Past Anesthesia/Blood Transfusion Reactions: No Reported Reaction Past Psychological History: Anxiety, Depression Smoking Status: Never smoker Past Alcohol Use History: None Reported Past Drug Use History: None Reported - Past Family History Sister(s) Family Medical History: Deep Vein Thrombosis (DVT) General Exam - General Exam Comments Initial Comments: GENERAL: Patient is well-developed and well-nourished. Patient is nontoxic and well- hydrated and is in mild distress. ENT: Neck is soft and supple. No significant lymphadenopathy is noted. Oropharynx is clear. Moist mucous membranes. EYES: The sclera were anicteric and conjunctiva were pink and moist. Extraocular movements were intact and pupils were equal round and reactive to light. Eyelids were unremarkable. PULMONARY: Unlabored respirations. Good breath sounds bilaterally. No audible rales rhonchi or wheezing was noted. CARDIOVASCULAR: There is a regular rate and rhythm without any murmurs gallops or rubs. ABDOMEN: Soft and nontender with normal bowel sounds. No palpable organomegaly was noted. There is no palpable pulsatile mass. SKIN: Skin is clear with no lesions or rashes and otherwise unremarkable. NEUROLOGIC: Patient is alert and oriented x3. Cranial nerves II through XII are grossly intact. Motor and sensory are also intact. Normal speech, volume and content. Symmetrical smile. MUSCULOSKELETAL: Normal extremities with adequate strength and full range of motion. LYMPHATICS: No significant lymphadenopathy is noted PSYCHIATRIC: Normal psychiatric evaluation. Limitations: no limitations Course Vital Signs 08/14/18 08/14/18 08/14/18 20:19 21:55 22:35 Temperature 97.8 F 98.2 F Pulse Rate 146 H 120 H 125 H Respiratory 18 16 15 Rate Blood Pressure 87/63 99/63 100/61 O2 Sat by Pulse 99 98 100 Oximetry Medical Decision Making - Medical Decision Making Patient received Zosyn and Reglan in the emergency department was able to tolerate water would like to go home at this point time. I suggested to the patient that she should stay she did not want to she insisted she would go home and follow-up as an outpatient - Lab Data Result diagrams: 08/14/18 20:50 08/14/18 20:50 Lab Results 08/14/18 08/14/18 08/14/18 Range/Units 20:50 20:50 21:45 WBC 54.7 H* (3.8-10.6) k/uL RBC 4.10 (3.80-5.40) m/uL Hgb 12.0 (11.4-16.0) gm/dL Hct 37.2 (34.0-46.0) % MCV 90.8 (80.0-100.0) fL MCH 29.4 (25.0-35.0) pg MCHC 32.4 (31.0-37.0) g/dL RDW 17.7 H (11.5-15.5) % Plt Count 140 L (150-450) k/uL Neutrophils % (Manual) 83 % Band Neutrophils % 17 % Lymphocytes % (Manual) 1 % Neutrophils # (Manual) 54.70 H (1.3-7.7) k/uL Lymphocytes # (Manual) 0.55 L (1.0-4.8) k/uL Nucleated RBCs 0 (0-0) /100 WBC Manual Slide Review Performed Toxic Granulation Present Anisocytosis Slight Sodium 138 (137-145) mmol/L Potassium 3.9 (3.5-5.1) mmol/L Chloride 107 (98-107) mmol/L Carbon Dioxide 21 L (22-30) mmol/L Anion Gap 10 mmol/L BUN 5 L (7-17) mg/dL Creatinine 0.30 L (0.52-1.04) mg/dL Est GFR (CKD-EPI)AfAm >90 (>60 ml/min/1.73 sqM) Est GFR (CKD-EPI)NonAf >90 (>60 ml/min/1.73 sqM) Glucose 113 H (74-99) mg/dL Calcium 8.2 L (8.4-10.2) mg/dL Total Bilirubin 1.4 H (0.2-1.3) mg/dL AST 35 (14-36) U/L ALT 22 (9-52) U/L Alkaline Phosphatase 229 H (38-126) U/L Total Protein 6.5 (6.3-8.2) g/dL Albumin 3.4 L (3.5-5.0) g/dL Amylase 33 (30-110) U/L Lipase 11 L (23-300) U/L Urine Color Yellow Urine Appearance Clear (Clear) Urine pH 6.0 (5.0-8.0) Ur Specific [place] 1.026 (1.001-1.035) Urine Protein 1+ H (Negative) Urine Glucose (UA) 1+ H (Negative) Urine Ketones 4+ H (Negative) Urine Blood Moderate H (Negative) Urine Nitrite Negative (Negative) Urine Bilirubin Negative (Negative) Urine Urobilinogen 2.0 (<2.0) mg/dL Ur Leukocyte Esterase Small H (Negative) Urine RBC 19 H (0-5) /hpf Urine WBC 15 H (0-5) /hpf Ur Squamous Epith Cells 3 (0-4) /hpf Urine Bacteria Rare H (None) /hpf Urine Mucus Few H (None) /hpf Disposition Clinical Impression: Acute vomiting Disposition: HOME SELF-CARE Condition: Good Instructions: Acute Nausea and Vomiting (ED) Is patient prescribed a controlled substance at d/c from ED?: No Referrals: Benjamin Villarreal MD [Primary Care Provider] - 1-2 days Time of Disposition: 23:19
[2018-08-14 21:12] LABS: ALT 22 U/L (9-52); AST 35 U/L (14-36); Albumin 3.4 g/dL (3.5-5.0); Alkaline Phosphatase 229 U/L (38-126); Amylase 33 U/L (30-110); Anion Gap 10 mmol/L; Blood Urea Nitrogen 5 mg/dL (7-17); Calcium 8.2 mg/dL (8.4-10.2); Carbon Dioxide 21 mmol/L (22-30); Chloride 107 mmol/L (98-107); Glucose 113 mg/dL (74-99); Lipase 11 U/L (23-300); Potassium 3.9 mmol/L (3.5-5.1); Sodium 138 mmol/L (137-145); Total Bilirubin 1.4 mg/dL (0.2-1.3); Total Protein 6.5 g/dL (6.3-8.2)
[2018-08-14 21:17] LABS: Anisocytosis Slight; HCT 37.2 % (34.0-46.0); MCH 29.4 pg (25.0-35.0); MCHC 32.4 g/dL (31.0-37.0); MCV 90.8 fL (80.0-100.0); Mean Platelet Volume 7.4; Platelet Count 140 k/uL (150-450); RDW 17.7 % (11.5-15.5)
[2018-08-14 21:23] LABS: WBC 54.7 k/uL (3.8-10.6)
[2018-08-14 21:41] LABS: Band Neutrophils % 17 %; Lymphocytes # (M) 0.55 k/uL (1.0-4.8); Neutrophils % (M) 83 %; Nucleated Red Blood Cells 0 /100 WBC (0-0); Total Cells Counted 200; Toxic Granulation Present
[2018-08-14 21:57] VITALS: TEMP 98.2
[2018-08-14 22:11] LABS: Appearance,Urine Clear (Clear); Bacteria,Urine Rare /hpf; Bilirubin,Urine Negative (Negative); Blood,Urine Moderate (Negative); Color,Urine Yellow; Glucose,Urine (UA) 1+ (Negative); Leukocyte Esterase,Urine Small (Negative); Mucus,Urine Few /hpf; Nitrite,Urine Negative (Negative); Protein,Urine 1+ (Negative); RBC,Urine 19 /hpf (0-5); Specific Gravity,Urine 1.026 (1.001-1.035); Squamous Epithelial Cell,Urine 3 /hpf (0-4); WBC,Urine 15 /hpf (0-5)
[2018-08-14 22:15] LABS: Ketones,Urine 4+ (Negative)
[2018-08-14] MEDS ORDERED: METOCLOPRAMIDE 5 MG/ML 2 ML VIAL IVP STA (22:33)
[2018-08-14 23:35] VITALS: BP 101/64; PULSE 120; RESP 16
== END 2018-08-14 23:44 | disposition home or self-care (01) ==
LOC: EC 20:13
DX: R11.2 Nausea with vomiting, unspecified (principal); R53.1 Weakness; R19.7 Diarrhea, unspecified; Z85.3 Personal history of malignant neoplasm of breast; Z85.05 Personal history of malignant neoplasm of liver; Z85.89 Personal history of malignant neoplasm of other organs and systems; Z92.21 Personal history of antineoplastic chemotherapy; Z79.52 Long term (current) use of systemic steroids; Z79.899 Other long term (current) drug therapy; Z88.0 Allergy status to penicillin
CPT/HCPCS: 99284; 96374; 96375; 96361; 36415; 80053; 82150; 83690; 85025; 81001; 87086; J2765; J2405

== ENCOUNTER → 2018-08-25 | Outpatient (CLI) | payer OTHER ==
--- NOTE | 2018-08-25 10:08 | ECHOF ---
Referral Reason:Z01.818 Encounter for other preprocedural examinat MEASUREMENTS -------- HEIGHT: 157.5 cm WEIGHT: 59.0 kg BP: RVIDd: 2.4 cm (< 3.3) IVSd: 1.2 cm (0.6 - 1.1) LVIDd: 4.4 cm (3.9 - 5.3) LVPWd: 0.9 cm (0.6 - 1.1) IVSs: 1.3 cm LVIDs: 3.6 cm LVPWs: 1.1 cm LA Diam: 3.1 cm (2.7 - 3.8) Ao Diam: 3.0 cm (2.0 - 3.7) AV Cusp: 2.2 cm (1.5 - 2.6) LA Diam: 2.8 cm (2.7 - 3.8) MV EXCURSION: 19.740 mm (> 18.000) MV EF SLOPE: 162 mm/s (70 - 150) EPSS: 0.6 cm MV E Ismael: 0.48 m/s MV DecT: 159 ms MV A Ismael: 0.66 m/s MV E/A Ratio: 0.72 RAP: 5.00 mmHg RVSP: 30.18 mmHg FINDINGS -------- Sinus rhythm. This was a technically good study. Pt. Has Breast inplants The left ventricular size is normal. Overall left ventricular systolic function is mild-moderately impaired with, an EF between 40 - 45 %. Anterseptal Hypokinesis The right ventricle is mildly enlarged. The left atrial size is normal. The right atrial size is normal. The aortic valve is trileaflet, and appears structurally normal. No aortic stenosis or regurgitation. Mild mitral regurgitation is present. Mild tricuspid regurgitation present. There is no evidence of pulmonary hypertension. The right v entricular systolic pressure, as measured by Doppler, is 30.18mmHg. There is no pulmonic regurgitation present. The aortic root size is normal. There is no pericardial effusion. CONCLUSIONS -------- 1. Pt. Has Breast inplants 2. The left ventricular size is normal. 3. Overall left ventricular systolic function is mild-moderately impaired with, an EF between 40 - 45 %. 4. Anterseptal Hypokinesis 5. The right ventricle is mildly enlarged. 6. The left atrial size is normal. 7. The right atrial size is normal. 8. The aortic valve is trileaflet, and appears structurally normal. No aortic stenosis or regurgitati on. 9. Mild mitral regurgitation is present. 10. Mild tricuspid regurgitation present. 11. There is no evidence of pulmonary hypertension. 12. The right ventricular systolic pressure, as measured by Doppler, is 30.18mmHg. 13. There is no pulmonic regurgitation present. 14. The aortic root size is normal. 15. There is no pericardial effusion. PRODUCT SAFETY AND STANDARDS ENGINEER: Carolina Tyson RDCS
== END ==
LOC: RADECHMAIN 08:35
PROVIDERS: ATTEND Internal Medicine Hematology & Oncology
DX: I08.1 Rheumatic disorders of both mitral and tricuspid valves (principal)
CPT/HCPCS: 93306

== ENCOUNTER → 2018-09-01 | Outpatient (CLI) | payer OTHER ==
--- NOTE | 2018-09-01 13:19 | US ---
EXAMINATION TYPE: US venous doppler duplex LE BI DATE OF EXAM: 09/01/2018 1:13 PM COMPARISON: NONE CLINICAL HISTORY: M79.662, M79.661 PAIN IN LT AND RT LOWER LIMB. Bilateral leg weakness/swelling, pt currently on Chemo SIDE PERFORMED: Bilateral TECHNIQUE: The lower extremity deep venous system is examined utilizing real time linear array sonog vero with graded compression, doppler sonography and color-flow sonography. VESSELS IMAGED: External Iliac Vein (EIV) Common Femoral Vein Deep Femoral Vein Greater Saphenous Vein * Femoral Vein Popliteal Vein Small Saphenous Vein * Proximal Calf Veins (* superficial vessels) Right Leg: Negative for DVT Left Leg: Negative for DVT Attempted to call office at time of exam, no answer, left message IMPRESSION: No evidence for DVT at this time.
== END | disposition home or self-care (01) ==
LOC: RADUSWWP 12:45
PROVIDERS: ATTEND Internal Medicine Hematology & Oncology
DX: M79.662 Pain in left lower leg (principal); M79.661 Pain in right lower leg; Z88.0 Allergy status to penicillin
CPT/HCPCS: 93970

== ENCOUNTER → 2018-10-08 | Outpatient (CLI) | payer OTHER ==
--- NOTE | 2018-10-08 13:17 | ECHOF ---
Referral Reason:Z01.818 Pre-surgical clearance MEASUREMENTS -------- HEIGHT: 157.5 cm WEIGHT: 66.2 kg BP: RVIDd: 3.1 cm (< 3.3) IVSd: 1.0 cm (0.6 - 1.1) LVIDd: 4.1 cm (3.9 - 5.3) LVPWd: 1.0 cm (0.6 - 1.1) IVSs: 1.4 cm LVIDs: 2.6 cm LVPWs: 1.2 cm LAESV Index (A-L): 18.79 ml/m Ao Diam: 3.3 cm (2.0 - 3.7) AV Cusp: 2.3 cm (1.5 - 2.6) LA Diam: 2.5 cm (2.7 - 3.8) MV EXCURSION: 20.954 mm (> 18.000) MV EF SLOPE: 113 mm/s (70 - 150) EPSS: 0.8 cm MV E Ismael: 0.59 m/s MV DecT: 281 ms MV A Ismael: 0.83 m/s MV E/A Ratio: 0.71 RAP: 5.00 mmHg RVSP: 29.16 mmHg FINDINGS -------- Sinus rhythm. Resting tachycardia (HR>100bpm). This was a technically adequate study. The left ventricular size is normal. Left ventricular wall thickness is normal. There is mild milly bal hypokinesis of LV . Overall left ventricular systolic function is low-normal with, an EF betwee n 50 - 55 %. The right ventricle is normal in size and function. Normal LA size by volume 22+/-6 ml/m2. The right atrium is normal in size. The aortic valve is trileaflet, and appears structurally normal. No aortic stenosis or regurgitation. The mitral valve is normal. There is trace to mild mitral regurgitation. Mild tricuspid regurgitation present. Right ventricular systolic pressure is normal at < 35 mmHg. The right ventricular systolic pressure, as measured by Doppler, is 29.16mmHg. Trace/mild (physiologic) pulmonic regurgitation. The aortic root size is normal. Normal inferior vena cava with normal inspiratory collapse consistent with estimated right atrial pre ssure of 5 mmHg. There is no pericardial effusion. Pleural Effusion with Fibrin. CONCLUSIONS -------- 1. Sinus rhythm. 2. Resting tachycardia (HR>100bpm). 3. This was a technically adequate study. 4. The left ventricular size is normal. 5. Left ventricular wall thickness is normal. 6. There is mild global hypokinesis of LV . 7. Overall left ventricular systolic function is low-normal with, an EF between 50 - 55 %. 8. Normal LA size by volume 22+/-6 ml/m2. 9. The aortic valve is trileaflet, and appears structurally normal. No aortic stenosis or regurgitati on. 10. The mitral valve is normal. 11. There is trace to mild mitral regurgitation. 12. Mild tricuspid regurgitation present. 13. Right ventricular systolic pressure is normal at < 35 mmHg. 14. Trace/mild (physiologic) pulmonic regurgitation. 15. The aortic root size is normal. 16. There is no pericardial effusion. 17. Pleural Effusion with Fibrin. CARD BOXER: Agustin Croft RDCS
== END | disposition home or self-care (01) ==
LOC: RADECHMAIN 10:54
PROVIDERS: ATTEND Internal Medicine Hematology & Oncology
DX: Z01.810 Encounter for preprocedural cardiovascular examination (principal); I08.1 Rheumatic disorders of both mitral and tricuspid valves; J90 Pleural effusion, not elsewhere classified; Z88.0 Allergy status to penicillin
CPT/HCPCS: 93306

== ENCOUNTER 2018-10-16 11:29 | Inpatient (IN) | payer OTHER ==
--- NOTE | 2018-10-16 12:28 | ED ---
General Adult HPI - General Chief complaint: Shortness of Breath Stated complaint: YURY Time Seen by Provider: 10/16/18 12:09 Source: patient, family, RN notes reviewed Mode of arrival: wheelchair Limitations: physical limitation - History of Present Illness Initial comments: Patient is a pleasant 48-year-old female presenting to the emergency department with difficulty in breathing. Patient does have history of left breast cancer. Patient did have surgical removal as well as radiation. Patient just finished chemotherapy around a month or so ago. Patient has been having increased dyspnea over the past month. Patient ran out of her Lasix around 1 week ago. Patient is having some leg swelling. Dyspnea is exertional. Distally also increases with lying down. No fevers. Occasional cough. No chest discomfort. Patient did have echo done around 1 week ago and family feels this was reported as normal. - Related Data Home Medications Medication Instructions Recorded Confirmed Furosemide [Lasix] 40 mg PO DAILY 08/14/18 10/16/18 Potassium Chloride ER [K-Dur 20] 20 meq PO DAILY 08/14/18 10/16/18 Cholecalciferol [Vitamin D3] 1,000 unit PO Q72H 10/16/18 10/16/18 Multivitamins, Thera [Multivitamin 1 tab PO DAILY 10/16/18 10/16/18 (formulary)] Allergies Allergy/AdvReac Type Severity Reaction Status Date / Time Penicillins AdvReac shaky Verified 10/16/18 13:19 Review of Systems ROS Statement: Those systems with pertinent positive or pertinent negative responses have been documented in the HPI. ROS Other: All systems not noted in ROS Statement are negative. Constitutional: Denies: fever, chills Eyes: Denies: eye pain ENT: Denies: ear pain Respiratory: Reports: cough, dyspnea Cardiovascular: Denies: chest pain Endocrine: Reports: fatigue Gastrointestinal: Denies: abdominal pain, nausea, vomiting Genitourinary: Denies: dysuria Musculoskeletal: Denies: back pain Skin: Denies: rash Neurological: Denies: weakness Past Medical History Past Medical History: Cancer Additional Past Medical History / Comment(s): breast, Liver mass and vertebrae mass History of Any Multi-Drug Resistant Organisms: None Reported Past Surgical History: Tubal Ligation Additional Past Surgical History / Comment(s): breast biopsy, left mastectomy Past Anesthesia/Blood Transfusion Reactions: No Reported Reaction Past Psychological History: Anxiety, Depression Smoking Status: Never smoker Past Alcohol Use History: None Reported Past Drug Use History: None Reported - Past Family History Sister(s) Family Medical History: Deep Vein Thrombosis (DVT) General Exam Limitations: physical limitation General appearance: alert, in no apparent distress Head exam: Present: atraumatic Eye exam: Present: normal appearance, PERRL ENT exam: Present: normal oropharynx Neck exam: Present: normal inspection Respiratory exam: Present: decreased breath sounds (Bilateral bases) Cardiovascular Exam: Present: tachycardia GI/Abdominal exam: Present: soft. Absent: tenderness Extremities exam: Present: pedal edema. Absent: calf tenderness Neurological exam: Present: alert Psychiatric exam: Present: normal affect, normal mood Skin exam: Present: normal color Course Vital Signs 10/16/18 10/16/18 12:03 12:22 Temperature 98.2 F Pulse Rate 106 H Respiratory 40 H 36 H Rate Blood Pressure 99/65 O2 Sat by Pulse 92 L Oximetry EKG Findings - EKG Comments: EKG Findings:: Sinus tachycardia 105. NH 122. QRS 86. QT 340. QTc 449. Normal axis. Low QRS voltage. No acute ST change. Medical Decision Making - Medical Decision Making Patient reevaluated. Patient and family updated. Case was discussed with Dr. srivastava, who will admit covering for Dr. Villarreal. Case was also discussed with Dr. Saldana who is familiar with this patient. He does recommend treated with Lasix and ordering computed tomography scan. - Lab Data Result diagrams: 10/16/18 13:15 10/16/18 13:15 Lab Results 10/16/18 10/16/18 10/16/18 Range/Units 13:15 13:15 13:15 WBC 6.7 (3.8-10.6) k/uL RBC 4.16 (3.80-5.40) m/uL Hgb 11.8 (11.4-16.0) gm/dL Hct 37.1 (34.0-46.0) % MCV 89.2 (80.0-100.0) fL MCH 28.3 (25.0-35.0) pg MCHC 31.7 (31.0-37.0) g/dL RDW 15.0 (11.5-15.5) % Plt Count 234 (150-450) k/uL Neutrophils % 69 % Lymphocytes % 18 % Monocytes % 8 % Eosinophils % 4 % Basophils % 1 % Neutrophils # 4.7 (1.3-7.7) k/uL Lymphocytes # 1.2 (1.0-4.8) k/uL Monocytes # 0.5 (0-1.0) k/uL Eosinophils # 0.2 (0-0.7) k/uL Basophils # 0.1 (0-0.2) k/uL Hypochromasia Slight PT (9.0-12.0) sec INR (<1.2) APTT (22.0-30.0) sec Sodium 139 (137-145) mmol/L Potassium 4.2 (3.5-5.1) mmol/L Chloride 107 (98-107) mmol/L Carbon Dioxide 28 (22-30) mmol/L Anion Gap 4 mmol/L BUN 8 (7-17) mg/dL Creatinine 0.39 L (0.52-1.04) mg/dL Est GFR (CKD-EPI)AfAm >90 (>60 ml/min/1.73 sqM) Est GFR (CKD-EPI)NonAf >90 (>60 ml/min/1.73 sqM) Glucose 100 H (74-99) mg/dL Calcium 9.0 (8.4-10.2) mg/dL Total Bilirubin 0.5 (0.2-1.3) mg/dL AST 38 H (14-36) U/L ALT 31 (9-52) U/L Alkaline Phosphatase 293 H (38-126) U/L Total Creatine Kinase <20 L (30-135) U/L CK-MB (CK-2) <0.2 (0.0-2.4) ng/mL CK-MB (CK-2) Rel Index Troponin I <0.012 (0.000-0.034) ng/mL NT-Pro-B Natriuret Pep pg/mL Total Protein 6.3 (6.3-8.2) g/dL Albumin 3.1 L (3.5-5.0) g/dL 10/16/18 10/16/18 Range/Units 13:15 13:15 WBC (3.8-10.6) k/uL RBC (3.80-5.40) m/uL Hgb (11.4-16.0) gm/dL Hct (34.0-46.0) % MCV (80.0-100.0) fL MCH (25.0-35.0) pg MCHC (31.0-37.0) g/dL RDW (11.5-15.5) % Plt Count (150-450) k/uL Neutrophils % % Lymphocytes % % Monocytes % % Eosinophils % % Basophils % % Neutrophils # (1.3-7.7) k/uL Lymphocytes # (1.0-4.8) k/uL Monocytes # (0-1.0) k/uL Eosinophils # (0-0.7) k/uL Basophils # (0-0.2) k/uL Hypochromasia PT 9.6 (9.0-12.0) sec INR 0.9 (<1.2) APTT 27.3 (22.0-30.0) sec Sodium (137-145) mmol/L Potassium (3.5-5.1) mmol/L Chloride (98-107) mmol/L Carbon Dioxide (22-30) mmol/L Anion Gap mmol/L BUN (7-17) mg/dL Creatinine (0.52-1.04) mg/dL Est GFR (CKD-EPI)AfAm (>60 ml/min/1.73 sqM) Est GFR (CKD-EPI)NonAf (>60 ml/min/1.73 sqM) Glucose (74-99) mg/dL Calcium (8.4-10.2) mg/dL Total Bilirubin (0.2-1.3) mg/dL AST (14-36) U/L ALT (9-52) U/L Alkaline Phosphatase (38-126) U/L Total Creatine Kinase (30-135) U/L CK-MB (CK-2) (0.0-2.4) ng/mL CK-MB (CK-2) Rel Index Troponin I (0.000-0.034) ng/mL NT-Pro-B Natriuret Pep 24 pg/mL Total Protein (6.3-8.2) g/dL Albumin (3.5-5.0) g/dL - Radiology Data Radiology results: image reviewed (Chest x-ray shows bilateral patchy infiltrates.) Disposition Clinical Impression: Dyspnea Disposition: ADMITTED IP TO THIS [facility] Condition: Serious Is patient prescribed a controlled substance at d/c from ED?: No Referrals: Benjamin Villarreal MD [Primary Care Provider] - 1-2 days Decision Time: 15:24
[2018-10-16 13:39] LABS: Basophils # (A) 0.1 k/uL (0-0.2); Basophils % (A) 1 %; Eosinophils # (A) 0.2 k/uL (0-0.7); Eosinophils % (A) 4 %; HCT 37.1 % (34.0-46.0); HGB 11.8 gm/dL (11.4-16.0); Hypochromasia Slight; Lymphocytes # (A) 1.2 k/uL (1.0-4.8); Lymphocytes % (A) 18 %; MCH 28.3 pg (25.0-35.0); MCHC 31.7 g/dL (31.0-37.0); MCV 89.2 fL (80.0-100.0); Mean Platelet Volume 7.1; Monocytes # (A) 0.5 k/uL (0-1.0); Monocytes % (A) 8 %; Neutrophils # (A) 4.7 k/uL (1.3-7.7); Neutrophils % (A) 69 %; Platelet Count 234 k/uL (150-450); RBC 4.16 m/uL (3.80-5.40); WBC 6.7 k/uL (3.8-10.6)
[2018-10-16 13:48] LABS: INR 0.9 (<1.2); Partial Thromboplastin Time 27.3 sec (22.0-30.0); Prothrombin Time 9.6 sec (9.0-12.0)
[2018-10-16 13:50] LABS: ALT 31 U/L (9-52); AST 38 U/L (14-36); Albumin 3.1 g/dL (3.5-5.0); Alkaline Phosphatase 293 U/L (38-126); Anion Gap 4 mmol/L; Blood Urea Nitrogen 8 mg/dL (7-17); Carbon Dioxide 28 mmol/L (22-30); Chloride 107 mmol/L (98-107); Glucose 100 mg/dL (74-99); Potassium 4.2 mmol/L (3.5-5.1); Sodium 139 mmol/L (137-145); Total Bilirubin 0.5 mg/dL (0.2-1.3); Total Protein 6.3 g/dL (6.3-8.2)
[2018-10-16 14:17] LABS: Creatine Kinase <20 U/L (30-135)
[2018-10-16 14:30] LABS: Creatine Kinase MB <0.2 ng/mL (0.0-2.4); Troponin I <0.012 ng/mL (0.000-0.034)
--- NOTE | 2018-10-16 14:36 | XR ---
EXAMINATION TYPE: XR chest 2V DATE OF EXAM: 10/16/2018 COMPARISON: 02/15/2015 HISTORY: Chest pain TECHNIQUE: Frontal and lateral views of the chest are obtained. FINDINGS: Patchy perihilar and basilar infiltrates with bilateral pleural effusions and diminished lung volumes . Correlate for pneumonia. Infiltrates of other etiology not excluded. Follow-up until resolution adv ised. No evidence for pneumothorax. No pleural effusion. The cardiac silhouette size is within normal limits. The osseous structures are grossly intact. IMPRESSION: 1. Patchy perihilar and basilar infiltrates with bilateral pleural effusions and diminished lung vol umes. Correlate for pneumonia. Infiltrates of other etiology not excluded. Follow-up until resolution advised.
[2018-10-16] MEDS ORDERED: IPRATROPIUM-ALBUTEROL 3 ML NEB INHALATION PRN (15:29)
[2018-10-16] MEDS ORDERED: PNEUMONIA PROTOCOL UTILIZED 1 EACH MISC PO PRN (15:29)
[2018-10-16] MEDS ORDERED: LEVOFLOXACIN 750MG-D5W PMX 750 MG in DEXTROSE/WATER 1 150ML.BAG IVPB STA (15:29)
[2018-10-16] MEDS: FUROSEMIDE 10 MG/ML 4 ML VIAL IV SCH (16:25)
--- NOTE | 2018-10-16 16:36 | CT ---
EXAMINATION TYPE: CT angio chest DATE OF EXAM: 10/16/2018 COMPARISON: CT July 03, 2018 HISTORY: SOB, Breast CA CT DLP: 292.1 mGycm. Automated Exposure Control for Dose Reduction was Utilized. CONTRAST: CTA scan of the thorax is performed with IV Contrast, patient injected with 100 mL of Isovue 370, pul monary embolism protocol. MIP Images are created on CT scanner and reviewed. FINDINGS: LUNGS: Large bilateral pleural effusions are seen on current study extending to lung apices, there is associated compressive atelectasis. Pleural effusions occupy roughly 50% of the thorax. There is per sistent azygos lobe/fissure. Small probable metastatic nodules on prior study are less well seen on c urrent study. There is diffuse groundglass opacity noted. There is more focal nodule or nodular conso lidation in the mid lung axial image 62 measuring 2.4 x 1.4 cm MEDIASTINUM: There is satisfactory enhancement of the pulmonary artery and its branches, there is no CT evidence for pulmonary embolism. There are no greater than 1 cm hilar or mediastinal lymph nodes. No cardiomegaly or pericardial effusion is seen. OTHER: Left breast implant is redemonstrated. Multiple hypodense lesions scattered the liver favoring thin-walled cysts are redemonstrated. There is redemonstration of osseous sclerotic metastatic lesio ns throughout the spine including L1 vertebra that has mild compression. No significant change is not ed. IMPRESSION: 1. No CT evidence for acute pulmonary embolism. 2. Large bilateral pleural effusions with mild diffuse alveolar and interstitial edema, correlate for fluid overload state. Underlying pulmonary metastatic disease less well seen due to effusions and ed john.
[2018-10-17] MEDS: FUROSEMIDE 10 MG/ML 4 ML VIAL IV SCH ×3 (03:16→21:26)
--- NOTE | 2018-10-17 10:17 | P.CRDCN ---
History of Present Illness History of present illness: This is a pleasant 48-year-old female past medical history significant for stage IV breast cancer diagnosed in 2015 with metastasis to the liver and spine gastroesophageal reflux disease. She denies history of coronary artery disease and is never seen a maintenance pipefitter for any reason. We have been asked to see her consultation for symptoms of exertional shortness of breath. She states for the previous 2-3 weeks she has been feeling increasing shortness of breath at rest and with exertion. She also states she cannot lay flat in bed due to shortness of breath while laying flat. CT angio of the chest and chest xray indicated significant bilateral pleural effusions. She has been started on IV lasix as well as PO antibiotics. She denies chest pain, palpitations, dizziness, nausea, vomiting, diaphoresis, fever or chills at home. She also denies any coughing. Echo obtained 07/2018 reveals decreased LV systolic function with EF 40-45%. Repeat echo 09/2018 shows EF 50-55%. She states she takes lasix for lower extremity edema. EKG reveals sinus mechanism with no acute ST or T-wave abnormalities. Poor R- wave progression noted. Chest xray on admission reveals patchy basilar infiltrates with b/l pleural effusion and diminished lung volumes CTA chest negative for PE with large b/l pleural effusions with mild diffuse alveolar and interstitial edema, underlying pulmonary metastatic disease less well seen due to effusions. Laboratory data reviewed, WBC 6.7, hgb 11.8, plt 234, sodium 139, potassium 4.2 , creatinine 10.39, cardiac enzymes negative x1, NTproBNP 24. Current cardiac medications include lasix 40 mg daily. At the time of my exam: CONSTITUTIONAL: Denies fever. Denies chills. EYES: Denies blurred vision. Denies vision changes. Denies eye pain. EARS, NOSE, MOUTH & THROAT: Denies headache. Denies sore throat. Denies ear pain. CARDIOVASCULAR: Denies chest pain. Complains of shortness of breath. Denies orthopnea. Denies PND. Denies palpitations. RESPIRATORY: Denies cough. GASTROINTESTINAL: Denies abdominal pain. Denies diarrhea. Denies constipation. Denies nausea. Denies vomiting. MUSCULOSKELETAL: Denies myalgias. INTEGUMENTARY: Denies pruitis. Denies rash. NEUROLOGIC: Denies numbness. Denies tingling. Denies weakness. PSYCHIATRIC: Denies anxiety. Denies depression. ENDOCRINE: Denies fatigue. Denies weight change. Denies polydipsia. Denies polyurina. GENITOURINARY: Denies burning, hematuria or urgency with micturation. HEMATOLOGIC: Denies history of anemia. Denies bleeding. Blood pressure 96/61 heart rate 100 afebrile maintaining oxygen saturation on nasal cannula GENERAL: This is a 48-year-old female in no apparent distress at the time of my examination. HEENT: Head is atraumatic, normocephalic. Pupils are equal, round. Sclerae anicteric. Conjunctivae are clear. Mucous membranes of the mouth are moist. Neck is supple. There is no jugular venous distention. No carotid bruit is heard. LUNGS: Bilateral rales noted, no wheezes or rhonchi. No chest wall tenderness is noted on palpation or with deep breathing. HEART: Regular rate and rhythm without murmurs, rubs or gallops. S1 and S2 heard. ABDOMEN: Soft, nontender. Bowel sounds are heard. No organomegaly noted. EXTREMITIES: Bilateral lower extremity non-pitting edema. No calf tenderness noted. VASCULAR: Radial and dorsalis pedis pulses palpated, no evidence of clubbing. NEUROLOGIC: Patient is awake, alert and oriented x3. ASSESSMENT Shortness of breath with bilateral pleural effusions. Limited echo obtained and reviewed, no evidence of diastolic dysfunction and normal collapse of IVC. Normal NTproBNP. No evidence of heart failure. Pleural effusions possibly related to malignancy. Stage 4 breast cancer with metastasis to the liver and spine Gastroesophageal reflux disease PLAN Limited echo obtained and reviewed, not suggestive of acute heart failure exacerbation. Discontinue IV lasix. Resume home dose of 40 mg daily. Consult pulmonary to assess pleural effusions. Ongoing medical management. Thank you kindly for this consultation. Nurse Practitioner note has been reviewed, I agree with a documented findings and plan of care. Patient was seen and examined. Past Medical History Past Medical History: Cancer, GERD/Reflux, Pneumonia, Skin Disorder Additional Past Medical History / Comment(s): lt breast cancer stage 4, Liver mass and vertebrae mass ,lung nodules(pt shated received chemo in aug 2018, past hx of shingles "few years ago" History of Any Multi-Drug Resistant Organisms: None Reported Past Surgical History: Tubal Ligation Additional Past Surgical History / Comment(s): left breast bx, lt breast masectomy and senital node bx, liver core bx Past Anesthesia/Blood Transfusion Reactions: No Reported Reaction Smoking Status: Never smoker - Past Family History Sister(s) Family Medical History: Deep Vein Thrombosis (DVT) Medications and Allergies Home Medications Medication Instructions Recorded Confirmed Type Furosemide [Lasix] 40 mg PO DAILY 08/14/18 10/16/18 History Potassium Chloride ER [K-Dur 20] 20 meq PO DAILY 08/14/18 10/16/18 History Cholecalciferol [Vitamin D3] 1,000 unit PO Q72H 10/16/18 10/16/18 History Multivitamins, Thera [Multivitamin 1 tab PO DAILY 10/16/18 10/16/18 History (formulary)] Allergies Allergy/AdvReac Type Severity Reaction Status Date / Time Penicillins AdvReac shaky Verified 10/16/18 13:19 Physical Exam Vitals: Vital Signs Temp Pulse Pulse Resp BP BP Pulse Ox 10/17/18 05:48 93/58 10/17/18 05:00 97.6 F 103 H 16 88/57 96 10/16/18 21:00 97.8 F 114 H 16 90/61 98 10/16/18 17:10 97.7 F 115 H 16 115/72 98 10/16/18 16:36 98.3 F 101 H 20 108/74 98 10/16/18 16:00 101 H 21 103/71 100 10/16/18 15:15 98.2 F 107 H 23 102/74 97 10/16/18 12:22 36 H 10/16/18 12:03 98.2 F 106 H 40 H 99/65 92 L Intake and Output 10/16/18 10/17/18 10/17/18 22:59 06:59 14:59 Intake Total 100 200 Output Total 600 Balance -500 200 Intake: Oral 100 200 Output: Urine 600 Other: Voiding Method Toilet # Voids 1 Results 10/16/18 13:15 10/16/18 13:15 Cardiac Enzymes 10/16/18 10/16/18 Range/Units 13:15 13:15 AST 38 H (14-36) U/L CK-MB (CK-2) <0.2 (0.0-2.4) ng/mL Troponin I <0.012 (0.000-0.034) ng/mL Coagulation 10/16/18 Range/Units 13:15 PT 9.6 (9.0-12.0) sec APTT 27.3 (22.0-30.0) sec CBC 10/16/18 Range/Units 13:15 WBC 6.7 (3.8-10.6) k/uL RBC 4.16 (3.80-5.40) m/uL Hgb 11.8 (11.4-16.0) gm/dL Hct 37.1 (34.0-46.0) % Plt Count 234 (150-450) k/uL Comprehensive Metabolic Panel 10/16/18 Range/Units 13:15 Sodium 139 (137-145) mmol/L Potassium 4.2 (3.5-5.1) mmol/L Chloride 107 (98-107) mmol/L Carbon Dioxide 28 (22-30) mmol/L BUN 8 (7-17) mg/dL Creatinine 0.39 L (0.52-1.04) mg/dL Glucose 100 H (74-99) mg/dL Calcium 9.0 (8.4-10.2) mg/dL AST 38 H (14-36) U/L ALT 31 (9-52) U/L Alkaline Phosphatase 293 H (38-126) U/L Total Protein 6.3 (6.3-8.2) g/dL Albumin 3.1 L (3.5-5.0) g/dL Current Medications Generic Name Dose Route Start Last Admin Trade Name Freq PRN Reason Stop Dose Admin Albuterol/Ipratropium 3 ml 10/16/18 15:29 Duoneb 0.5 Mg-3 Mg/3 Ml Soln INHALATION RT-Q4H PRN shortness of breath Furosemide 40 mg 10/16/18 16:00 10/17/18 08:50 Lasix IV 40 mg Q12HR JAYJAY Administration Levofloxacin 750 mg 10/17/18 16:00 Levaquin PO 10/22/18 16:01 Q24H JAYJAY Miscellaneous Information 1 each 10/16/18 15:29 Pneumonia Protocol Utilized PO ONCE PRN Per Protocol Sodium Chloride 10 ml 10/16/18 21:00 10/17/18 08:51 Saline Flush IV 10 ml BID JAYJAY Administration Intake and Output 10/16/18 10/17/18 10/17/18 22:59 06:59 14:59 Intake Total 100 200 Output Total 600 Balance -500 200 Intake: Oral 100 200 Output: Urine 600 Other: Voiding Method Toilet # Voids 1 10/16/18 13:15 10/16/18 13:15
--- NOTE | 2018-10-17 10:21 | XR ---
EXAMINATION TYPE: XR chest 2V DATE OF EXAM: 10/17/2018 COMPARISON: 10/16/2018 HISTORY: Pneumonia. Follow-up exam. TECHNIQUE: Frontal and lateral views of the chest are obtained. FINDINGS: There are similar appearing bibasilar densities as well as moderate layering bilateral ple ural effusions, cardiomegaly and pulmonary vascular congestion. No sizable pneumothorax. Osseous stru ctures are grossly intact. IMPRESSION: Moderate bilateral pleural effusions with associated bibasilar airspace disease, likely atelectasis. Additionally there is persistent interstitial pulmonary edema and cardiomegaly likely on the basis of congestive heart failure.
[2018-10-17] MEDS ORDERED: LIDOCAINE 1% INJ 10MG/ML (20 ML MDV) SQ ONE (13:11)
[2018-10-17 13:13] VITALS: BMI 24.8
--- NOTE | 2018-10-17 14:12 | ECHOF ---
Referral Reason:sob MEASUREMENTS -------- HEIGHT: 157.5 cm WEIGHT: 61.7 kg BP: RVIDd: 2.5 cm (< 3.3) IVSd: 1.0 cm (0.6 - 1.1) LVIDd: 4.2 cm (3.9 - 5.3) LVPWd: 1.0 cm (0.6 - 1.1) IVSs: 1.3 cm LVIDs: 3.5 cm LVPWs: 1.1 cm MV E Ismael: 0.48 m/s MV DecT: 215 ms MV A Ismael: 0.68 m/s MV E/A Ratio: 0.72 FINDINGS -------- Resting tachycardia (HR>100bpm). This was a technically adequate study. Limited Study for assesssment of IVC collapse and diastolic dysfunction The left ventricular size is normal. Left ventricular wall thickness is normal. There is moderate global hypokinesis of LV . Overall left ventricular systolic function is moderately impaired with, an EF between 35 - 40 %. The diastolic filling pattern is normal for the age of the patient 10.10. Normal inferior vena cava with normal inspiratory collapse consistent with estimated right atrial pre ssure of 5 mmHg. CONCLUSIONS -------- 1. Resting tachycardia (HR>100bpm). 2. This was a technically adequate study. 3. Limited Study for assesssment of IVC collapse and diastolic dysfunction 4. The left ventricular size is normal. 5. Left ventricular wall thickness is normal. 6. There is moderate global hypokinesis of LV . 7. Overall left ventricular systolic function is moderately impaired with, an EF between 35 - 40 %. 8. The diastolic filling pattern is normal for the age of the patient 10.10 9. Normal inferior vena cava with normal inspiratory collapse consistent with estimated right atrial pressure of 5 mmHg. DIGITAL MARKETING SPECIALIST: Agustin Mir RDCS
--- NOTE | 2018-10-17 14:35 | US ---
EXAMINATION TYPE: US chest DATE OF EXAM: 10/17/2018 COMPARISON: NONE CLINICAL HISTORY: bilateral pleural effusions, shortness of breath. TECHNIQUE: Targeted ultrasound of the posterior lower EXAM MEASUREMENTS: Right Pleural Effusion pocket size: 11.4 cm Right skin surface to fluid distance: 2.1 cm Left Pleural Effusion pocket size: 10.2 cm Left skin surface to fluid distance: 2.6 cm There is associated bilateral atelectasis. Right side marked for possible thoracentesis outside the dept. Right side shows lung at 5cm. Left side marked for possible thoracentesis outside the dept. Pulmonologists are able to review the images in the patient?s EMR. IMPRESSIONS: Bilateral moderate pleural effusions with associated compressive atelectasis as describe d above.
--- NOTE | 2018-10-17 15:52 | P.CNPUL ---
History of Present Illness Consult date: 10/17/18 Requesting physician: Robbin Riggs Reason for consult: dyspnea, pleural effusion, abnormal CXR/CT Chief complaint: shortness of breath with bilateral pleural effusions History of present illness: This is a 48 -year-old female patient of Dr. Villarreal, who presented to the emergency department on 10/16/2018 for evaluation of difficulty breathing. Patient has been short of breath for the last 2 weeks, and her dyspnea was getting progressively worse. Patient has a history of metastatic left breast cancer, status post surgical removal, and radiation therapy. Patient finished chemotherapy around a month ago. Patient ran out of her oral Lasix one week ago. She is having some increased leg swelling. Dyspnea is worse with any exertion, and lying down. Denied any fever or chills, no chest discomfort. Other medical history includes anxiety, depression, GERD/reflux, previous episode of pneumonia,lifetime nonsmoker. chest x-ray showed patchy perihilar and basilar infiltrates with bilateral pleural effusions and diminished lung volumes. CT angios chest was negative for pulmonary embolism, but showed large bilateral pleural effusions with mild diffuse alveolar and interstitial edema. EKG shows sinus tachycardia, with low voltage QRS in the anterior leads, but no acute ischemic changes. Patient was seen and evaluated by cardiology, cardiac enzymes were negative 1, proBNP was within normal limits at 24. 2-D echocardiogram was completed and showed a moderately impaired left ventricle systolic function with an EF between 35 and 40%, moderate global hypokinesis of left ventricle. Were seen this patient in consultation for a lateral pleural effusions, rule out metastatic disease. Review of Systems All systems: negative Constitutional: Denies chills, Denies fever Eyes: denies blurred vision, denies pain Ears, nose, mouth and throat: Denies headache, Denies sore throat Breasts: left: as per HPI Cardiovascular: Denies chest pain, Denies shortness of breath Respiratory: Reports dyspnea, Denies cough Gastrointestinal: Denies abdominal pain, Denies diarrhea, Denies nausea, Denies vomiting Genitourinary: Denies dysuria, Denies hematuria Musculoskeletal: Denies myalgias Integumentary: Denies pruritus, Denies rash Neurological: Denies numbness, Denies weakness Psychiatric: Denies anxiety, Denies depression Endocrine: Denies fatigue, Denies weight change Past Medical History Past Medical History: Cancer, GERD/Reflux, Pneumonia, Skin Disorder Additional Past Medical History / Comment(s): lt breast cancer stage 4, Liver mass and vertebrae mass ,lung nodules(pt shated received chemo in aug 2018, past hx of shingles "few years ago" History of Any Multi-Drug Resistant Organisms: None Reported Past Surgical History: Tubal Ligation Additional Past Surgical History / Comment(s): left breast bx, lt breast masectomy and senital node bx, liver core bx Past Anesthesia/Blood Transfusion Reactions: No Reported Reaction Smoking Status: Never smoker - Past Family History Sister(s) Family Medical History: Deep Vein Thrombosis (DVT) Medications and Allergies Home Medications Medication Instructions Recorded Confirmed Type Furosemide [Lasix] 40 mg PO DAILY 08/14/18 10/16/18 History Potassium Chloride ER [K-Dur 20] 20 meq PO DAILY 08/14/18 10/16/18 History Cholecalciferol [Vitamin D3] 1,000 unit PO Q72H 10/16/18 10/16/18 History Multivitamins, Thera [Multivitamin 1 tab PO DAILY 10/16/18 10/16/18 History (formulary)] Allergies Allergy/AdvReac Type Severity Reaction Status Date / Time Penicillins AdvReac shaky Verified 10/16/18 13:19 Physical Exam Vitals: Vital Signs Temp Pulse Pulse Resp BP BP Pulse Ox 10/17/18 12:57 100 10/17/18 12:45 100 10/17/18 12:42 97.5 F L 119 H 16 101/71 96 10/17/18 08:50 96/61 10/17/18 07:40 100 12 10/17/18 07:33 98 12 10/17/18 05:48 93/58 10/17/18 05:00 97.6 F 103 H 16 88/57 96 10/16/18 21:00 97.8 F 114 H 16 90/61 98 10/16/18 17:10 97.7 F 115 H 16 115/72 98 10/16/18 16:36 98.3 F 101 H 20 108/74 98 10/16/18 16:00 101 H 21 103/71 100 Intake and Output 10/17/18 10/17/18 10/17/18 06:59 14:59 22:59 Intake Total 200 Balance 200 Intake: Oral 200 Other: Voiding Method Toilet Toilet # Voids 2 Weight 61.689 kg GENERAL EXAM: Alert, very pleasant, 48-year-old female, mildly short of breath , comfortable in no apparent distress. HEAD: Normocephalic/atraumatic. EYES: Normal reaction of pupils, equal size. Conjunctiva pink, sclera white. NOSE: Clear with pink turbinates. THROAT: No erythema or exudates. NECK: No masses, no JVD, no thyroid enlargement, no adenopathy. CHEST: No chest wall deformity. Symmetrical expansion. LUNGS: Equal air entry with no crackles, wheeze, rhonchi, diminished breath sounds at bilateral bases, with dullness to percussion. CVS: Regular rate and rhythm, normal S1 and S2, no gallops, no murmurs, no rubs ABDOMEN: Soft, nontender. No hepatosplenomegaly, normal bowel sounds, no guarding or rigidity. EXTREMITIES: No clubbing, no edema, no cyanosis, 2+ pulses and upper and lower extremities. MUSCULOSKELETAL: Muscle strength and tone normal. SPINE: No scoliosis or deformity SKIN: No rashes CENTRAL NERVOUS SYSTEM: Alert and oriented -3. No focal deficits, tone is normal in all 4 extremities. PSYCHIATRIC: Alert and oriented -3. Appropriate affect. Intact judgment and insight. Results - Laboratory Findings CBC and BMP: 10/16/18 13:15 10/16/18 13:15 PT/INR, D-dimer PT 9.6 sec (9.0-12.0) 10/16/18 13:15 INR 0.9 (<1.2) 10/16/18 13:15 Abnormal lab findings: Abnormal Labs 10/16/18 10/16/18 10/16/18 13:15 13:15 13:15 Creatinine 0.39 L Glucose 100 H Plasma Lactic Acid Sander 0.6 L AST 38 H Alkaline Phosphatase 293 H Total Creatine Kinase <20 L Albumin 3.1 L - Diagnostic Findings Chest x-ray: report reviewed, image reviewed CT scan - chest: report reviewed, image reviewed Additional studies: EKG reviewed Assessment and Plan Plan: assessment: #1. Dyspnea, related to bilateral pleural effusions, rule out metastatic disease #2. History of metastatic breast cancer, status post left mastectomy, radiation and chemotherapy. Patient has metastasis to the liver and spine. #3. GERD/reflux #4. Cardiomyopathy, echocardiogram was performed, and showed EF of 35-40% with moderately global hypokinesis. was a limited study #5.Anxiety/depression #6.lifetime nonsmoker Plan: We'll obtain ultrasound of the chest, was reviewed, and showed a right pleural effusion pocket of 11.4 cm, and left pleural effusion pocket of 10.2 cm, proceed with right-sided thoracentesis today, and possibly left-sided thoracentesis tomorrow. Pleural fluid will be sent for analysis, cultures and cytology. CT chest and chest x-ray was reviewed by Dr. Steward. Echocardiogram was reviewed. Patient is mildly dyspneic at rest, but in no acute distress, or seizure was explained to the patient, and patient wishes to proceed I performed a history & physical examination of the patient and discussed their management with my nurse practitioner, Viky Garcia. I reviewed the nurse practitioner's note and agree with the documented findings and plan of care. Lung sounds are positive for diminished breath sounds, with the onset the bases. The findings and the impression was discussed with the patient. I attest to the documentation by the nurse practitioner. Time with Patient: Greater than 30
[2018-10-17] MEDS ORDERED: LEVOFLOXACIN 750 MG TAB PO SCH (16:00)
--- NOTE | 2018-10-17 17:17 | XR ---
EXAMINATION TYPE: XR chest 1V portable DATE OF EXAM: 10/17/2018 COMPARISON: 10/17/2018 HISTORY: Right-sided thoracentesis TECHNIQUE: Single frontal view of the chest is obtained. FINDINGS: Heart is enlarged. There is pulmonary vascular congestion. There is blunting of costophren ic angles bilaterally and more on the left side. There are chest leads. No pneumothorax. IMPRESSION: There is decrease in the right pleural effusion compared to exam earlier today. Congesti ve heart failure unchanged. Large left pleural effusion.
--- NOTE | 2018-10-17 19:43 | P.CONS ---
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 She has been treated with oral steroids, as well as Cellcept ( stopped a year prior to her visit) and Dapsone ( stopped 5-6 mths prior to her initial visit). She had been seen about 4+ years ago by myself, for Rituxan, but it was not covered by her insurance. She is being followed by Alexa Cody and Alfred ( at [facility]), and Rituxan was agsain recommended, and apparently now, approved by her insurance in 12/10. she was thus referred here by Dr Cody to begin the same. Currently her involvement is mainly related to her oral and nasal mucosae. She completed 4 weekly treatments on 03/03/13. She tolerated them very well and noticed a good symptomatic response. Unfortunately, she relapsed after a fairly short time,and was sent back here by Dr Nadir Mock for repeat treatment. This did result in repeat remission. The pt noted a lump in the outer part of her left breast initially in early . This enlarged and became progressively tender. She had a mammogram on revealing suspicious,coarse heterogenous calcifications. She had an US, and then an US guided core biopsy on the same day. The tumor was 4.2 cm in maximal dimension on US. The biopsy revealed extensive DCIS, with invasive ductal carcinoma , grade II, with ER/MD/Her 2 pending. She was thus referred her for further evaluation and recommendations. At her visit in 02/09, it was recommended to the patient that we await tumor markers which are pending at the time of your visit. Given the size of the tumor, if it was triple negative for HER-2 positive, she was strongly urged to consider neoadjuvant systemic therapy. We also strongly recommended genetic testing. The patient did not agree to any of the above at the time for initial visit and stated that she would consider her options. She decided to proceed with surgery and had a left mastectomy with sentinel node biopsy on 03/22/15. This revealed multifocal invasive ductal carcinoma, arising in a background of extensive DCIS. Largest focus of invasive carcinoma was 9 mm. Overall grade was grade 3. DCIS was at least 5 cm in size. Margins were uninvolved. Total number of sentinel nodes examined were 2 with an additional 4 nodes sampled. All nodes were negative for involvement. Marker status revealed estrogen receptor less than 1, progesterone receptor 0, and HER-2 3+ (positive). The patient tolerated surgery well. We had discussed in the office, that if marker status was positive, her tumor would be considered more aggressive and would require systemic therapy. The patient decided that she did not want any systemic therapy, and did not follow-up with either myself or with surgery. In 01/12, the patient developed low back pain with some radiation down the left leg. His became progressively worse. She was given a Medrol Dosepak by her PCP without much improvement and actually ended up in the ER at [facility]. She had partial relief of symptoms with methocarbamol initially, with subsequent progression. She was seen back by her PCP, and had an MRI on 09/14, that showed abnormal marrow signal and enhancement of the elbow notable body, as well as T11 which was highly suspicious for metastatic disease. At L1 there was severe left neuroforaminal narrowing and mild left lateral spinal cord stenosis. The patient was therefore referred back here, and seen on 03/14/18. She denied any fever, chills or weight loss. Pain level was noted as being from 7-10 with increase on weightbearing. It was controlled with [place] when necessary as long as she was laying down. the patient was started on Decadron, as well as fentanyl in addition to the [place]. She was referred to [facility] for bone biopsy, as well as to radiation oncology. She had restaging CT scans done which showed unfortunately , bilateral lung metastasis as well as significant tumor burden in both lobes of the liver. The patient was seen back at her own request on 04/01/18. She and her stated that they had questions about the upcoming bone biopsy. they did not want to have a bone biopsy as "she already had damage in her bones"! she was therefore started on radiation, and underwent a liver biopsy on 04/08/18. This confirmed metastatic carcinoma consistent with breast primary. Subsequent marker testing revealed this to be similar, with ER/MD negative and her-2 3+ ( positive). she completed her radiation to the spine around 04/18/18. she was recommended treatment with Docetaxel/herceptin/Perjeta, but decided to wait until a second opinion at the [facility] [place]. She was seen at her own request on 05/05/18 c/o progressive SOB over 2 weeks. She denied any f/c/cough ofr chest pain. This appeared to be due to progression of tumor, and she was advice to start treatment as soon as possible. She still waited until she had a consultation at the [facility], who agreed with the above recommendations. she started treatment with docetaxel/Herceptin/Perjeta on 05/20/18 and is status post 6 cycles, completing those on 09/02/18. She had 1 cycle of Herceptin and Perjeta, which was then stopped due to SOB, orthopnea and LE swelling. She had an inpt admission at [facility] for SOB in 09/14 . She had b/ l pleural effusions, improved with diuresis. She then had persistent LE swelling , also improved with diuresis She had an ECHO on 10/08/18 showing a EF of 50-55% and no pericardial effusion. Re-read asked of EF and felt to be closer to 40-45% per verbal communication to Dr. Garay. She c/o fatigue, and trouble lying flat. She fekt slightly better with Lasix, but had recurrence with completion of her course. Her appetite is improved. Her BMs are more regular. She had been having significant anxiety in the evenings, improved with starting Xanax. Her pain is significantly improved with radiation and current pain medications. It is at about 1-2/10 on weightbearing. Bowel movements are affected by intermittent constipation, but are overall regular, as long as she follows her bowel protocol as advised She presents today for significant increased shortness of breath, worsening bilateral pleural effusions, abdominal distention, and bilateral lower extremitity edema. A repeat echocardiogram performed this am, awaiting read. Daughter at bedside during evaluation. She states her ankles and sides of abdomen began increasing in swelling the past few days, decreased urine output, although feels she is emptying. She is in moderate respiratory distress with oxygen NC on, saturation 96% at 4L. Review of Systems A 14 point review of systems assessed and completed and all negative except HPI Past Medical History Past Medical History: Cancer, GERD/Reflux, Pneumonia, Skin Disorder Additional Past Medical History / Comment(s): lt breast cancer stage 4, Liver mass and vertebrae mass ,lung nodules(pt shated received chemo in aug 2018, past hx of shingles "few years ago" History of Any Multi-Drug Resistant Organisms: None Reported Past Surgical History: Tubal Ligation Additional Past Surgical History / Comment(s): left breast bx, lt breast masectomy and senital node bx, liver core bx Past Anesthesia/Blood Transfusion Reactions: No Reported Reaction Smoking Status: Never smoker - Past Family History Sister(s) Family Medical History: Deep Vein Thrombosis (DVT) Medications and Allergies Home Medications Medication Instructions Recorded Confirmed Type Furosemide [Lasix] 40 mg PO DAILY 08/14/18 10/16/18 History Potassium Chloride ER [K-Dur 20] 20 meq PO DAILY 08/14/18 10/16/18 History Cholecalciferol [Vitamin D3] 1,000 unit PO Q72H 10/16/18 10/16/18 History Multivitamins, Thera [Multivitamin 1 tab PO DAILY 10/16/18 10/16/18 History (formulary)] Allergies Allergy/AdvReac Type Severity Reaction Status Date / Time Penicillins AdvReac shaky Verified 10/16/18 13:19 Physical Exam Vitals: Vital Signs Temp Pulse Pulse Resp BP Pulse Ox 10/17/18 12:57 100 10/17/18 12:45 100 10/17/18 12:42 97.5 F L 119 H 16 101/71 96 10/17/18 08:50 96/61 10/17/18 07:40 100 12 10/17/18 07:33 98 12 10/17/18 05:48 93/58 10/17/18 05:00 97.6 F 103 H 16 88/57 96 10/16/18 21:00 97.8 F 114 H 16 90/61 98 Intake and Output 10/17/18 10/17/18 10/17/18 06:59 14:59 22:59 Intake Total 200 Balance 200 Intake: Oral 200 Other: Voiding Method Toilet Toilet # Voids 2 Weight 61.689 kg - Constitutional General appearance: cooperative, mild distress - EENT Eyes: EOMI, PERRLA, dentition normal ENT: NA/AT, normal oropharynx - Neck Neck: normal ROM - Respiratory Respiratory: bilateral: diminished (throughout) - Cardiovascular Heart rate: 112 Rhythm: regularly irregular ankle Peripheral Edema: bilateral: 2+ - Gastrointestinal General gastrointestinal: distended, tenderness - Integumentary Integumentary: pale - Neurologic Neurologic: CNII-XII intact - Musculoskeletal Musculoskeletal: generalized weakness, strength equal bilaterally - Psychiatric Psychiatric: A&O x's 3, appropriate affect, intact judgment & insight Results CBC & Chem 7: 10/16/18 13:15 10/16/18 13:15 Labs: Microbiology - Last 24 Hours (Table) 10/16/18 16:04 Blood Culture - Preliminary Blood No Growth after 24 hours Comments: Echocardiogram 35-40% EF Assessment and Plan Plan: Assessment and recommendations: 1. Metastatic Breast Cancer: - Status POst Treatment with TCHP, now on adjuvant year Herceptin and PErjeta - Herception and PErjeta on Hold secondary to decreasing ejection Fracture 2. Increasing Bilateral PLeural Effusions: Likely secondary heart failure - Diuresis - Cardiology FOllowing - Rec MUGA scan as outpatient for increased objectiveness of EF monitoring if re-resuming antibodies for breast cancer, defer to cardiology - Pulmonary following for thoracentesis, obtain cytology, likely secondary to decreased EF 3. Acute Hypoxic Respiratory Failure - Secondary to number 2 Will follow along with you and provide further recs for treatment plan at follow -up with Dr. Garay as outpatient
[2018-10-17] MEDS ORDERED: FUROSEMIDE 10 MG/ML 10 ML VIAL IV SCH (20:05)
--- NOTE | 2018-10-17 20:05 | P.HPIM ---
History of Present Illness H&P Date: 10/17/18 Chief Complaint: Shortness of breath History of presenting complaint: This is a pleasant 48-year-old patient whose of [place] dissent. Chronic stable medical conditions include GERD, anxiety depression. Patient has a diagnosis of metastatic breast cancer treated with left mastectomy. Patient has finished a course of chemotherapy and radiation treatment. Patient has metastatic disease including that of the liver and the vertebral bone. Cancer stage IV. Patient was just started on immunotherapy. She follows with oncologist Dr. Garay. Patient also had radiation treatment to the spine. For about 2 or 3 weeks patient has been progressively feeling short of breath. That extremity swelling. Appetite has been okay. No pain. Patient to ER was found to have bilateral pleural effusion and admitted for the same. Consultation was made to pulmonary and cardiology.also lower extremity edema. Slight cough. No fever or chills. Review of systems: GEN.: Weak and tired EYES: None HEENT: None NECK: None RESPIRATORY: As above CARDIOVASCULAR: As a GASTROINTESTINAL: None GENITOURINARY: None MUSCULOSKELETAL: None LYMPHATICS: None HEMATOLOGICAL: None PSYCHIATRY: Some anxiety depression NEUROLOGICAL: None Past medical history: Metastatic breast cancer with metastases to the liver and bones. GERD. Anxiety depression. Pemphigus vulgaris. Shingles Past surgical history: Tubal ligation, left mastectomy with sentinel node biopsy, liver core biopsy Social history: Does not smoke or drink alcohol. Lives with her daughter and son. Investigations: Chest x-ray- personally reviewed by me shows bilateral pleural effusion some cephalization and cardio medically EKG-tracing personally reviewed by me shows sinus rhythm small voltage Chest CTA-shows pleural effusion not obvious for metastatic disease Limited echocardiogram shows EF of 35-40% and global hypokinesia Assessment: -Bilateral pleural effusion, could be from metastatic breast cancer, the same time noted on the echocardiogram to have a EF of 35-40% with global hypokinesis ER. The latter could be from chemotherapy. -Stage IV metastatic breast cancer with metastatic systems liver and bone -Possible nonischemic cardiomyopathy with EF of 35-40% Plan: Consultation was made to cardiology and pulmonary. This was done with the 4 bilateral thoracentesis. We'll try the patient on 2 doses of IV Lasix. Other home medications be continued. Will give Lovenox for DVT prophylaxis. Care was discussed with the patient and and her daughter by the bedside. Past Medical History Past Medical History: Cancer, GERD/Reflux, Pneumonia, Skin Disorder Additional Past Medical History / Comment(s): lt breast cancer stage 4, Liver mass and vertebrae mass ,lung nodules(pt shated received chemo in aug 2018, past hx of shingles "few years ago" History of Any Multi-Drug Resistant Organisms: None Reported Past Surgical History: Tubal Ligation Additional Past Surgical History / Comment(s): left breast bx, lt breast masectomy and senital node bx, liver core bx Past Anesthesia/Blood Transfusion Reactions: No Reported Reaction Smoking Status: Never smoker - Past Family History Sister(s) Family Medical History: Deep Vein Thrombosis (DVT) Medications and Allergies Home Medications Medication Instructions Recorded Confirmed Type Furosemide [Lasix] 40 mg PO DAILY 08/14/18 10/16/18 History Potassium Chloride ER [K-Dur 20] 20 meq PO DAILY 08/14/18 10/16/18 History Cholecalciferol [Vitamin D3] 1,000 unit PO Q72H 10/16/18 10/16/18 History Multivitamins, Thera [Multivitamin 1 tab PO DAILY 10/16/18 10/16/18 History (formulary)] Allergies Allergy/AdvReac Type Severity Reaction Status Date / Time Penicillins AdvReac shaky Verified 10/16/18 13:19 Physical Exam Vitals: Vital Signs Temp Pulse Pulse Resp BP BP Pulse Ox 10/17/18 08:50 96/61 10/17/18 07:40 100 12 10/17/18 07:33 98 12 10/17/18 05:48 93/58 10/17/18 05:00 97.6 F 103 H 16 88/57 96 10/16/18 21:00 97.8 F 114 H 16 90/61 98 10/16/18 17:10 97.7 F 115 H 16 115/72 98 10/16/18 16:36 98.3 F 101 H 20 108/74 98 10/16/18 16:00 101 H 21 103/71 100 10/16/18 15:15 98.2 F 107 H 23 102/74 97 10/16/18 12:22 36 H 10/16/18 12:03 98.2 F 106 H 40 H 99/65 92 L Intake and Output 12/20/18 12/21/18 12/21/18 22:59 06:59 14:59 Intake Total 100 200 Output Total 600 Balance -500 200 Intake: Oral 100 200 Output: Urine 600 Other: Voiding Method Toilet Toilet # Voids 1 Results CBC & Chem 7: 10/16/18 13:15 10/16/18 13:15 Labs: Abnormal Lab Results - Last 24 Hours (Table) 10/16/18 10/16/18 10/16/18 Range/Units 13:15 13:15 13:15 Creatinine 0.39 L (0.52-1.04) mg/dL Glucose 100 H (74-99) mg/dL Plasma Lactic Acid Sander 0.6 L (0.7-2.0) mmol/L AST 38 H (14-36) U/L Alkaline Phosphatase 293 H (38-126) U/L Total Creatine Kinase <20 L (30-135) U/L Albumin 3.1 L (3.5-5.0) g/dL Thrombosis Risk Factor Assmnt - Choose All That Apply Any of the Below Risk Factors Present?: Yes Each Factor Represents 1 point: Age 41-60 years, Swollen legs (current) Other Risk Factors: No Other congenital or acquired thrombophilia - If yes, enter type in comment: No Thrombosis Risk Factor Assessment Total Risk Factor Score: 2 Thrombosis Risk Factor Assessment Level: Low Risk
[2018-10-17 20:24] LABS: Appearance,BF Cloudy; Color,BF Yellow
[2018-10-17 20:47] LABS: Nucleated Cells, Body Fluid 3800 /uL; RBC, Body Fluid 240 /uL
[2018-10-17 20:59] LABS: Mononuclear WBC,Body Fluid 98 %; Polynuclear WBC,Body Fluid 1 %; Total Cells Counted,Body Fluid 100
[2018-10-17] MEDS: ENOXAPARIN 40 MG/0.4 ML SYRINGE SQ SCH (21:27)
--- NOTE | 2018-10-17 21:59 | PCN ---
PROCEDURE NOTE PROCEDURE: Right thoracentesis. INDICATIONS: Pleural effusion. DESCRIPTION OF PROCEDURE: A time-out was completed verifying correct patient, procedure, site, positioning , and implant (s) or special equipment if applicable. Ultrasound guidance was not used and appropriate fluid pocket was identified and marked. Patient was positioned, prepped and draped in usual sterile fashion. Lidocaine was used to anesthetize the area. A Thoracentesis catheter was introduced into the right pleural space and fluid was removed. Blood loss was none. A chest x-ray was ordered to evaluate for pneumothorax. Total Fluid Removed: 1100 mL. Patient tolerated the procedure relatively well, toward the end of the procedure she developed some refractory cough. We stopped the procedure at that point. The fluid was sent for analysis. A chest x-ray was ordered. The right posterior chest was marked by ultrasound. There were no immediate complications. The fluid will be sent for cytology and microbiologic studies as well as chemistries. Again, the patient tolerated the procedure well. A chest x-ray was ordered to rule out pneumothorax. The patient's daughter was in the room during the procedure. MMODL / IJN: [id number] /
[2018-10-18] MEDS ORDERED: FUROSEMIDE 40 MG TAB PO SCH (09:00)
[2018-10-18] MEDS: ENOXAPARIN 40 MG/0.4 ML SYRINGE SQ SCH (09:21)
[2018-10-18] MEDS: FUROSEMIDE 10 MG/ML 4 ML VIAL IV SCH (09:21)
[2018-10-18 12:29] VITALS: BP 103/68; RESP 18; TEMP 97.9
--- NOTE | 2018-10-18 13:50 | XR ---
EXAMINATION TYPE: XR chest 1V portable DATE OF EXAM: 10/18/2018 Comparison: 10/17/2018 Clinical History: 48-year-old female S/P THORACENTESIS Findings: Heart upper limits of normal in size. Diffuse interstitial opacities persist with more patchy left ba silar opacity. There is a small residual left pleural effusion, decreased from 10/17/2018 after thora centesis. No appreciable pneumothorax. Impression: Residual small left pleural effusion with adjacent atelectasis and or consolidation after thoracentes is. No appreciable pneumothorax. Continued diffuse interstitial lung disease.
--- NOTE | 2018-10-18 14:26 | P.PN ---
Subjective Progress Note Date: 10/18/18 Principal diagnosis: Dyspnea secondary to bilateral pleural effusions This is a 48 -year-old female patient of Dr. Villarreal, who presented to the emergency department on 10/16/2018 for evaluation of difficulty breathing. Patient has been short of breath for the last 2 weeks, and her dyspnea was getting progressively worse. Patient has a history of metastatic left breast cancer, status post surgical removal, and radiation therapy. Patient finished chemotherapy around a month ago. Patient ran out of her oral Lasix one week ago. She is having some increased leg swelling. Dyspnea is worse with any exertion, and lying down. Denied any fever or chills, no chest discomfort. Other medical history includes anxiety, depression, GERD/reflux, previous episode of pneumonia,lifetime nonsmoker. chest x-ray showed patchy perihilar and basilar infiltrates with bilateral pleural effusions and diminished lung volumes. CT angios chest was negative for pulmonary embolism, but showed large bilateral pleural effusions with mild diffuse alveolar and interstitial edema. EKG shows sinus tachycardia, with low voltage QRS in the anterior leads, but no acute ischemic changes. Patient was seen and evaluated by cardiology, cardiac enzymes were negative 1, proBNP was within normal limits at 24. 2-D echocardiogram was completed and showed a moderately impaired left ventricle systolic function with an EF between 35 and 40%, moderate global hypokinesis of left ventricle. Were seen this patient in consultation for a lateral pleural effusions, rule out metastatic disease. The patient is seen again today 10/18/2018 in follow-up on the regular medical floor. She is awake and alert in no acute distress. She is status post right- sided thoracentesis done yesterday with 1100 mL removed. Exudative in nature. She is breathing a bit better today as compared to yesterday. Maintaining good O2 saturations in the upper 90s on room air. She's afebrile. The plan is for a left-sided thoracentesis with Dr. Steward today. Objective - Vital Signs Vital signs: Vital Signs Temp 97.9 F 10/18/18 12:11 Pulse 105 H 10/18/18 12:11 Resp 18 10/18/18 12:11 BP 103/68 10/18/18 12:11 Pulse Ox 98 10/18/18 12:11 Intake & Output 10/17/18 10/18/18 10/18/18 18:59 06:59 18:59 Weight 61.689 kg Other: Voiding Method Toilet Toilet # Voids 2 1 - Exam GENERAL EXAM: Alert, very pleasant, 48-year-old female, mildly short of breath , comfortable in no apparent distress. On room air. HEAD: Normocephalic/atraumatic. EYES: Normal reaction of pupils, equal size. Conjunctiva pink, sclera white. NOSE: Clear with pink turbinates. THROAT: No erythema or exudates. NECK: No masses, no JVD, no thyroid enlargement, no adenopathy. CHEST: No chest wall deformity. Symmetrical expansion. LUNGS: Equal air entry with no crackles, wheeze, rhonchi, diminished breath sounds at bilateral bases, with dullness to percussion. CVS: Regular rate and rhythm, normal S1 and S2, no gallops, no murmurs, no rubs ABDOMEN: Soft, nontender. No hepatosplenomegaly, normal bowel sounds, no guarding or rigidity. EXTREMITIES: No clubbing, no edema, no cyanosis, 2+ pulses and upper and lower extremities. MUSCULOSKELETAL: Muscle strength and tone normal. SPINE: No scoliosis or deformity SKIN: No rashes CENTRAL NERVOUS SYSTEM: Alert and oriented -3. No focal deficits, tone is normal in all 4 extremities. PSYCHIATRIC: Alert and oriented -3. Appropriate affect. Intact judgment and insight. - Labs CBC & Chem 7: 10/16/18 13:15 10/16/18 13:15 Labs: Microbiology - Last 24 Hours (Table) 10/17/18 16:45 Gram Stain - Preliminary Thoracic Fluid Body Fluid Culture - Preliminary 10/17/18 16:45 Acid Fast Bacilli Culture - Preliminary Thoracic Fluid 10/17/18 16:45 Fungal Culture - Preliminary Thoracic Fluid 10/16/18 16:04 Blood Culture - Preliminary Blood No Growth after 24 hours Assessment and Plan Assessment: Impression: #1. Dyspnea, related to bilateral pleural effusions, rule out metastatic disease #2. History of metastatic breast cancer, status post left mastectomy, radiation and chemotherapy. Patient has metastasis to the liver and spine. #3. GERD/reflux #4. Cardiomyopathy, echocardiogram was performed, and showed EF of 35-40% with moderately global hypokinesis. was a limited study #5.Anxiety/depression #6.lifetime nonsmoker Plan: She was seen and evaluated by Dr. Steward. He did go ahead and perform a left- sided thoracentesis and another 1200 ML's was removed. Follow-up chest x-ray revealed a residual small left pleural effusion with adjacent atelectasis. No pneumothorax. The patient is breathing quite a bit better. She is maintaining good O2 saturations in the 90s on room air. She is cleared for discharge from the pulmonary standpoint. She should follow-up in our office in 1-2 weeks' time. We'll repeat a chest x-ray then. He is however encouraged to call sooner with any recurrence of symptoms or any other questions or concerns. I, the cosigning physician, performed a history & physical examination of the patient. Lungs sounds with faint crackles in the posterior bases. Maintaining good O2 saturations in the 90s on room air. I discussed the assessment and plan of care with my nurse practitioner, Lynda Michelle. I attest to the above note as dictated by her.
[2018-10-18 16:57] VITALS: PULSE 108
--- NOTE | 2018-10-18 19:57 | PCN ---
PROCEDURE NOTE PROCEDURE PERFORMED: Left sided thoracentesis. Indication Pleural effusion. A time-out was completed verifying correct patient, procedure, site, positioning , and implant (s) or special equipment if applicable. Ultrasound guidance was/was not used and appropriate fluid pocket was identified and marked. Patient was positioned, prepped and draped in usual sterile fashion. Lidocaine was used to anesthetize the area. A Thoracentesis catheter was introduced into the pleural space and fluid was removed. Blood loss was none. A chest x-ray was ordered to evaluate for pneumothorax. Total Fluid Removed 1300 mL Color of Fluid @@ Fluid was not sent for appropriate laboratory tests. Patient tolerated the procedure well and there were no complications. The fluid will not be sent for analysis. The right side was then yesterday and sent for analysis. The patient tolerated the procedure well. There was no complications. Chest x-ray was ordered to rule out pneumothorax. The left posterior chest was marked by ultrasound. Again, there was no immediate complications. There was informed consent. There was universal timeout. The operators were Dr. Steward and Dr. Michelle. MMRAHELL / ALINAN: [id number] /
--- NOTE | 2018-10-19 02:33 | DS ---
DISCHARGE SUMMARY DATE OF ADMISSION: October 16, 2018. DATE OF DISCHARGE: October 18, 2018 FINAL DIAGNOSES: 1. Bilateral pleural effusion, symptomatic, could be from metastatic breast cancer. 2. Nonischemic cardiomyopathy ejection fraction 35-40 percent. 3. Stage IV metastatic breast cancer with metastasis disease to the liver and bone. HOSPITAL COURSE: This patient with short of breath found to have bilateral pleural effusion. Bilateral thoracentesis was carried out on [address] Steward. Breathing overall much better. 2D echo showed EF of 35-40 percent. Doing much better, tolerating a diet. CONSULTATION: Dr. Steward from Pulmonary and Dr. Satish Bridges from Cardiology. EXAMINATION: VITAL SIGNS: Temp 97.5, pulse 105, respiratory 18, blood pressure 103/60, pulse ox 98% on room air. Lungs decreased breath sounds. Psych AO x3. INVESTIGATIONS: Pleural fluid, cytology pending. DISCHARGE MEDICATIONS: 1. Vitamin D3 1000 units p.o. every 72 hours. 2. Multivitamin 1 tablet p.o. daily. 3. Lasix 40 mg p.o. daily. 4. Potassium 20 mEq p.o. daily. FOLLOWUP: Follow up with Dr. Garay in 2 weeks. Follow up with Dr. Villarreal in 1 week. Follow up with Dr. Steward in 1 week. Follow up with Cardiology as determined by Dr. Villarreal. Copy to Dr. Villarreal. JOSE / SAVANNA: [id number] /
== END 2018-10-18 17:40 | disposition home or self-care (01) | DRG 181 ==
LOC: EC 11:29 → 3NMEDONC 15:28
PROVIDERS: ADMIT Hospitalist; ATTEND Hospitalist
PROC: 0W993ZZ Drainage of Right Pleural Cavity, Percutaneous Approach (ICD-10-PCS; 2018-10-17)
PROC: 0W9B3ZZ Drainage of Left Pleural Cavity, Percutaneous Approach (ICD-10-PCS; principal; 2018-10-18)
DX: C78.01 Secondary malignant neoplasm of right lung (principal); J91.0 Malignant pleural effusion; I42.9 Cardiomyopathy, unspecified; C78.7 Secondary malignant neoplasm of liver and intrahepatic bile duct; C79.51 Secondary malignant neoplasm of bone; C50.912 Malignant neoplasm of unspecified site of left female breast; C78.02 Secondary malignant neoplasm of left lung; K21.9 Gastro-esophageal reflux disease without esophagitis; F41.9 Anxiety disorder, unspecified; M48.061 Spinal stenosis, lumbar region without neurogenic claudication; K59.00 Constipation, unspecified; F32.9 Major depressive disorder, single episode, unspecified; Z92.3 Personal history of irradiation; Z90.12 Acquired absence of left breast and nipple; Z17.1 Estrogen receptor negative status [ER-]; Z86.19 Personal history of other infectious and parasitic diseases
CPT/HCPCS: 36415; 71045; 71046; 71275; 76604; 80053; 82550; 82553; 82945; 83605; 83615; 83880; 84157; 84484; 85025; 85610; 85730; 87040; 87070; 87102; 87116; 87205; 87206; 87252; 89050; 93005; 93308; 94640; 94760; 96374; 99285

== ENCOUNTER → 2018-11-18 | Outpatient (CLI) | payer OTHER ==
--- NOTE | 2018-11-18 11:43 | XR ---
EXAMINATION TYPE: XR chest 2V DATE OF EXAM: 11/18/2018 COMPARISON: Chest x-ray October 18, [address] chest October 16, 2018. HISTORY: Recurrent pleural effusions. History of metastatic breast cancer. TECHNIQUE: Frontal and lateral as well as bilateral decubitus views of the chest are obtained. FINDINGS: There are small to moderate right greater than left bilateral pleural effusions which appe ar to layer dependently on decubitus views slightly more prominent from most recent chest x-ray. Inc reasing reticular interstitial prominence bilaterally is present likely reflecting developing edema a nd/or infiltrates. Scattered pulmonary nodules on older CTs are less well seen on current x-ray. An a zygos lobe/fissure is seen. The cardiac silhouette size is upper limits of normal currently. The os seous structures are intact. IMPRESSION: Increasing small to moderate size bilateral pleural effusions as well as worsening bilat eral interstitial edema and/or infiltrates on background of known metastatic disease.
== END | disposition home or self-care (01) ==
LOC: RADXRMAIN 11:07
PROVIDERS: ATTEND Internal Medicine Hematology & Oncology
DX: J90 Pleural effusion, not elsewhere classified (principal); C79.51 Secondary malignant neoplasm of bone; C50.819 Malignant neoplasm of overlapping sites of unspecified female breast; R11.2 Nausea with vomiting, unspecified; G89.3 Neoplasm related pain (acute) (chronic)
CPT/HCPCS: 71046

== ENCOUNTER 2018-11-25 09:34 | Day surgery (SDC) | payer OTHER ==
[2018-11-24 10:13] VITALS: BMI 23.2
[~2018-11-25 09:34] MED LIST: ALBUTEROL NEB (CONC) 2.5 MG/0.5 ML INHALATION ONE; ATROPINE SULFATE 0.4 MG/ML 1 ML VIAL IM ONE; LACTATED RINGERS 1,000 ML IV SCH; LIDOCAINE 1% 20 ML VIAL (10MG/ML) FOR IV START INTRADERMA PRN; LIDOCAINE 2% (PF) 20 MG/ML 10 ML AMP INHALATION ONE; LIDOCAINE VISCOUS 2% 15 ML CUP MUCOUS MEM ONE; SODIUM CHLORIDE 0.9% 1,000 ML IV SCH
[2018-11-25 10:28] VITALS: RESP 18; TEMP 97.9
[2018-11-25] MEDS ORDERED: PROPOFOL 10 MG/ML 20 ML VIAL IV ONE (11:10)
[2018-11-25] MEDS ORDERED: LIDOCAINE 1% INJ 10MG/ML (20 ML MDV) ONE (11:10)
[2018-11-25] MEDS ORDERED: MIDAZOLAM 2 MG/2 ML VIAL ONE (11:10)
[2018-11-25] MEDS ORDERED: LIDOCAINE 2% INJ 20 MG/ML INTRATRACH ONE (11:22)
--- NOTE | 2018-11-25 12:09 | OP ---
OPERATIVE REPORT PROCEDURE: Bronchoscopy, airway examination, therapeutic lavage, BAL right middle lobe. PREOPERATIVE DIAGNOSIS: Cancer versus infection. POSTOPERATIVE DIAGNOSIS: Cancer versus infection. There was informed consent. There was universal timeout. COIL WINDER provided general anesthesia, unconscious sedation. The patient was done in the [facility] endoscopy suite. The operators were Dr. Steward and Dr. Michelle. After the patient was adequately sedated and being fully monitored, the bronchoscope was placed down the right nostril. It passed through the right nasopharynx into the oropharynx. The hypopharynx was identified and topicalized. The hypopharyngeal structures including anterior commissure, true cords, false cords, arytenoids, piriform sinuses, right and left vallecula and epiglottis all appeared normal. After topicalization, the bronchoscope was pushed through the glottic opening into the trachea. The trachea appeared normal. There was some secretions noted in the trachea. They were suctioned. The right and left mainstem were topicalized. The right upper lobe and its 3 segments and the right middle lobe and its 2 segments, the right lower lobe and its 5 segments, left upper lobe proper and its 2 segments, the lingula and its 2 segments and left lower lobe and its 4 segments all had similar findings of diffuse airway erythema and hyperemia. There was some vascular engorgement and mucosal friability. There was no dominant mass or tumor. There were some secretions. They were somewhat purulent in nature. The bronchoscope was then wedged into the right middle lobe. The BAL took place. The patient tolerated the procedure well. The bronchoscope was withdrawn. The patient will be recovered. I will speak to the patient's family members. MMODL / IJN: [id number] /
[2018-11-25 12:14] VITALS: BP 100/60; PULSE 101
--- NOTE | 2018-11-25 13:15 | PCN ---
PROCEDURE NOTE PROCEDURE: Bronchoscopy, airway examination, therapeutic lavage, BAL right middle lobe. PREOPERATIVE DIAGNOSIS: Bronchitis POSTOPERATIVE DIAGNOSIS: Bronchitis PROCEDURE: There was informed consent. There was universal timeout. The patient's procedure was done in the endoscopy suite. The operators were Dr. Steward and Dr. Michelle. After the patient was adequately sedated and being fully monitored, the bronchoscope was inserted through the right nostril. It passed through the right nasopharynx into the oropharynx. The hypopharynx was identified and topicalized. The anterior commissure, true cords , false cords, arytenoids, piriform sinuses, right and left vallecula and epiglottis all appeared relatively normal. After topicalization, the bronchoscope was pushed into the trachea. The tracheal michael was sharp. The right mainstem was topicalized. The right upper lobe and its 3 segments, right middle lobe and its 2 segments and right middle lobe in 5 segments. The left upper lobe proper with its 2 segments, the lingula and its 2 segments and left lower lobe and its 4 segments all had similar findings of diffuse airway erythema and hyperemia. There were few secretions. Some of the secretions did look a bit purulent. The airways were very inflamed and red. There was some vascular engorgement and some minor mucosal friability. There was no dominant mass or lesion. The bronchoscope was then wedged into the right middle lobe. The BAL took place. Patient tolerated procedure well. There was no immediate complication. The patient will be recovered. I will speak to the patient's family member after the procedure. MMODL / IJN: [id number] / MTDD
[2018-11-25 16:43] LABS: Appearance,BF Cloudy; RBC, Body Fluid 122 /uL
[2018-11-25 16:44] LABS: Nucleated Cells, Body Fluid 217 /uL
[2018-11-25 16:46] LABS: Mononuclear WBC,Body Fluid 40 %; Polynuclear WBC,Body Fluid 56 %; Total Cells Counted,Body Fluid 100
== END 2018-11-25 12:37 | disposition home or self-care (01) ==
LOC: ORWHC2ENDO 09:34
PROVIDERS: ATTEND Internal Medicine Critical Care Medicine
DX: J90 Pleural effusion, not elsewhere classified (principal); D05.90 Unspecified type of carcinoma in situ of unspecified breast; I42.9 Cardiomyopathy, unspecified; C79.51 Secondary malignant neoplasm of bone; K21.9 Gastro-esophageal reflux disease without esophagitis; Z92.21 Personal history of antineoplastic chemotherapy; Z79.899 Other long term (current) drug therapy; Z88.0 Allergy status to penicillin
CPT/HCPCS: 94640; 81025; 87798 ×3; 87496; 87498; 87529; 88108; 88305; 89050; 88342; 87252; 87502; 87634; 88341; 87070; 87205; 87116; 87102; 87206; 31624; J2001 ×3; J2250; J0461; J2704; 93005

== ENCOUNTER 2018-11-29 09:32 | Emergency (ER) | payer OTHER ==
--- NOTE | 2018-11-29 09:57 | ED ---
General Adult HPI - General Chief complaint: Neuro Symptoms/Deficit Stated complaint: YURY Time Seen by Provider: 11/29/18 09:41 Source: patient, family Mode of arrival: wheelchair Limitations: no limitations - History of Present Illness Initial comments: Dictation was produced using [employer] dictation software. please excuse any grammatical, word or spelling errors. Chief Complaint: 48-year-old female presents with throbbing headache, numbness to the left fingers. She has a past medical history of breast cancer with metastases. History of Present Illness: 48-year-old female. Patient was recently admitted to the hospital for pleural effusions. Patient had bronchial lavage performed by package liner. 3-4 days ago. Postoperative diagnosis after lavage showed cancer versus infection. Bronchial washings specimens are pending with pathology. Patient was given hospital for several hours and then discharged. Patient has history of breast cancer with metastases to the lungs. She does not know if he has metastases to the brain. Patient was discharged on the . She states that since then she's been having headaches. States headaches are more severe than usual. She has had headaches similar to this in the past. She states they are throbbing. Patient not currently on any chemo or radiation therapy. Her oncologist Dr. Garay. Patient has several comorbidities secondary to breast cancer. She has finished course of chemotherapy and radiation treatment. Patient also had mastectomy. Started on immunotherapy recently. Patient has global hypokinesis seen on echocardiogram. She reports she is unable to tolerate lying flat. The ROS documented in this emergency department record has been reviewed and confirmed by me. Those systems with pertinent positive or negative responses have been documented in the HPI. All other systems are other negative and/or noncontributory. PHYSICAL EXAM: General Impression: Alert and oriented x3, acute distress secondary to pain, cachectic 6 HEENT: Normocephalic atraumatic, extra-ocular movements intact, pupils equal and reactive to light bilaterally, mucous membranes moist. Cardiovascular: Heart regular rate and rhythm, S1&S2 audible, no murmurs, rubs or gallops Chest: Bilateral lung crackles Abdomen: Bowel sounds present, abdomen soft, non-tender, non-distended, no organomegaly Musculoskeletal: Pulses present and equal in all extremities, no peripheral edema Motor: Generalized global weakness, no focal deficits noted Neurological: CN II-XII grossly intact, no focal motor or sensory deficits noted Skin: Intact with no visualized rashes ED course: 48-year-old female with progressed rest cancer presents with chief complaint of headache, generalized weakness, paresthesias to the left upper extremity. Vital signs upon arrival are within acceptable limits. Laboratory evaluation obtained. CBC, coag panel, metabolic panel is unremarkable. Chest x-ray is stable. There is redemonstration of diffuse interstitial edema and infiltrate with pleural effusions. Brain CT was obtained showing no acute intracranial hemorrhage or midline shift. There is multiple focal areas of low attenuation with newsome-white matter black suspicious for metastatic disease. Given headache cocktail. Discussed patient case with Dr. Garay patient's oncologist. He recommends patient given 1 dose of Decadron here. Recommends patient be given 4 mg every 6 hours. She she is told to call the office on Saturday for arrangement of radiation therapy. Discussed plan with patient and family member was agreeable to plan. Patient given return precautions patient states she will return if she has worsening headache, syncope or worsening neurologic deficit. EKG interpretation: Ventricular rate 98, sinus rhythm, VT interval 104, care is 80, QTc 441. No VT prolongation, no QTC prolongation, no ST or T-wave changes noted. EKG compared to 11/25/2018 showing no changes. Overall, this EKG is unremarkable - Related Data Home Medications Medication Instructions Recorded Confirmed Cholecalciferol [Vitamin D3] 1,000 unit PO DAILY 10/16/18 11/29/18 Ascorbic Acid [Vitamin C] 1,000 mg PO DAILY 11/24/18 11/29/18 [id number] 2 tab PO Q6HR 11/29/18 11/29/18 [Excedrin] Ibuprofen [Advil] 400 mg PO Q8HR PRN 11/29/18 11/29/18 Previous Rx's Medication Instructions Recorded Dexamethasone [Decadron] 4 mg PO Q6H #24 tablet 11/29/18 Allergies Allergy/AdvReac Type Severity Reaction Status Date / Time Penicillins AdvReac shaky Verified 11/29/18 10:06 Review of Systems ROS Statement: Those systems with pertinent positive or pertinent negative responses have been documented in the HPI. ROS Other: All systems not noted in ROS Statement are negative. Past Medical History Past Medical History: Cancer, GERD/Reflux, Pneumonia, Skin Disorder Additional Past Medical History / Comment(s): pleural effusions Sep 2018,lt breast cancer stage 4, Liver mass and vertebrae mass ,lung nodules(pt shated received chemo in aug 2018, past hx of shingles "few years ago" History of Any Multi-Drug Resistant Organisms: None Reported Past Surgical History: Tubal Ligation Additional Past Surgical History / Comment(s): "bronchiowash" left breast bx, lt breast masectomy and senital node bx, liver core bx Past Anesthesia/Blood Transfusion Reactions: No Reported Reaction Past Psychological History: Anxiety, Depression Smoking Status: Never smoker Past Alcohol Use History: None Reported Past Drug Use History: None Reported - Past Family History Sister(s) Family Medical History: Deep Vein Thrombosis (DVT) General Exam Limitations: no limitations Course Vital Signs 11/29/18 11/29/18 11/29/18 09:35 10:00 10:30 Temperature 97.9 F Pulse Rate 70 92 90 Respiratory 18 20 20 Rate Blood Pressure 101/69 96/66 106/70 O2 Sat by Pulse 96 98 98 Oximetry 11/29/18 11:30 Temperature Pulse Rate 87 Respiratory 22 Rate Blood Pressure 110/72 O2 Sat by Pulse 100 Oximetry Medical Decision Making - Lab Data Result diagrams: 11/29/18 09:55 11/29/18 09:55 Lab Results 11/29/18 11/29/18 11/29/18 Range/Units 09:55 09:55 09:55 WBC 5.6 (3.8-10.6) k/uL RBC 5.18 (3.80-5.40) m/uL Hgb 13.9 (11.4-16.0) gm/dL Hct 42.9 (34.0-46.0) % MCV 82.9 D (80.0-100.0) fL MCH 26.9 (25.0-35.0) pg MCHC 32.5 (31.0-37.0) g/dL RDW 15.1 (11.5-15.5) % Plt Count 241 (150-450) k/uL Neutrophils % 62 % Lymphocytes % 23 % Monocytes % 8 % Eosinophils % 5 % Basophils % 1 % Neutrophils # 3.5 (1.3-7.7) k/uL Lymphocytes # 1.3 (1.0-4.8) k/uL Monocytes # 0.4 (0-1.0) k/uL Eosinophils # 0.3 (0-0.7) k/uL Basophils # 0.0 (0-0.2) k/uL PT (9.0-12.0) sec INR (<1.2) Sodium 140 (137-145) mmol/L Potassium 4.2 (3.5-5.1) mmol/L Chloride 106 (98-107) mmol/L Carbon Dioxide 27 (22-30) mmol/L Anion Gap 7 mmol/L BUN 12 (7-17) mg/dL Creatinine 0.40 L (0.52-1.04) mg/dL Est GFR (CKD-EPI)AfAm >90 (>60 ml/min/1.73 sqM) Est GFR (CKD-EPI)NonAf >90 (>60 ml/min/1.73 sqM) Glucose 99 (74-99) mg/dL Plasma Lactic Acid Sander 1.2 (0.7-2.0) mmol/L Calcium 9.6 (8.4-10.2) mg/dL Magnesium 1.8 (1.6-2.3) mg/dL Creatine Kinase <20 L (30-135) U/L NT-Pro-B Natriuret Pep pg/mL 11/29/18 11/29/18 Range/Units 09:55 09:55 WBC (3.8-10.6) k/uL RBC (3.80-5.40) m/uL Hgb (11.4-16.0) gm/dL Hct (34.0-46.0) % MCV (80.0-100.0) fL MCH (25.0-35.0) pg MCHC (31.0-37.0) g/dL RDW (11.5-15.5) % Plt Count (150-450) k/uL Neutrophils % % Lymphocytes % % Monocytes % % Eosinophils % % Basophils % % Neutrophils # (1.3-7.7) k/uL Lymphocytes # (1.0-4.8) k/uL Monocytes # (0-1.0) k/uL Eosinophils # (0-0.7) k/uL Basophils # (0-0.2) k/uL PT 10.7 (9.0-12.0) sec INR 1.0 (<1.2) Sodium (137-145) mmol/L Potassium (3.5-5.1) mmol/L Chloride (98-107) mmol/L Carbon Dioxide (22-30) mmol/L Anion Gap mmol/L BUN (7-17) mg/dL Creatinine (0.52-1.04) mg/dL Est GFR (CKD-EPI)AfAm (>60 ml/min/1.73 sqM) Est GFR (CKD-EPI)NonAf (>60 ml/min/1.73 sqM) Glucose (74-99) mg/dL Plasma Lactic Acid Sander (0.7-2.0) mmol/L Calcium (8.4-10.2) mg/dL Magnesium (1.6-2.3) mg/dL Creatine Kinase (30-135) U/L NT-Pro-B Natriuret Pep 157 pg/mL Disposition Clinical Impression: Brain metastases Disposition: HOME SELF-CARE Condition: Fair Prescriptions: Dexamethasone [Decadron] 4 mg PO Q6H #24 tablet Is patient prescribed a controlled substance at d/c from ED?: No Referrals: Thiago Garay MD [STAFF PHYSICIAN] - 1-2 days Time of Disposition: 13:40
[2018-11-29] MEDS ORDERED: ACETAMINOPHEN IV (For NPO) 1,000 MG in EMPTY BAG 1 BAG IVPB ONE (09:58)
[2018-11-29] MEDS ORDERED: SODIUM CHLORIDE 0.9% 500 ML IV STA (09:58)
[2018-11-29] MEDS ORDERED: MORPHINE SULFATE 4 MG/ML SYRINGE IVP PRN (09:58)
[2018-11-29] MEDS ORDERED: ONDANSETRON 4 MG/2 ML VIAL IVP STA (09:58)
[2018-11-29] MEDS ORDERED: diphenhydrAMINE 50 MG/ML 1 ML VIAL IVP STA (09:58)
[2018-11-29 10:13] LABS: HCT 42.9 % (34.0-46.0); HGB 13.9 gm/dL (11.4-16.0); Lymphocytes % (A) 23 %; MCH 26.9 pg (25.0-35.0); MCHC 32.5 g/dL (31.0-37.0); Mean Platelet Volume 6.6; Neutrophils % (A) 62 %; Platelet Count 241 k/uL (150-450); RBC 5.18 m/uL (3.80-5.40); RDW 15.1 % (11.5-15.5); WBC 5.6 k/uL (3.8-10.6)
[2018-11-29 10:14] LABS: Basophils % (A) 1 %; Eosinophils # (A) 0.3 k/uL (0-0.7); Eosinophils % (A) 5 %; Lymphocytes # (A) 1.3 k/uL (1.0-4.8); Monocytes # (A) 0.4 k/uL (0-1.0); Monocytes % (A) 8 %; Neutrophils # (A) 3.5 k/uL (1.3-7.7)
[2018-11-29 10:15] LABS: MCV 82.9 fL (80.0-100.0); Prothrombin Time 10.7 sec (9.0-12.0)
[2018-11-29 10:21] LABS: Anion Gap 7 mmol/L; Blood Urea Nitrogen 12 mg/dL (7-17); Calcium 9.6 mg/dL (8.4-10.2); Carbon Dioxide 27 mmol/L (22-30); Chloride 106 mmol/L (98-107); Creatine Kinase <20 U/L (30-135); Glucose 99 mg/dL (74-99); Magnesium 1.8 mg/dL (1.6-2.3); Potassium 4.2 mmol/L (3.5-5.1); Sodium 140 mmol/L (137-145)
--- NOTE | 2018-11-29 11:11 | XR ---
EXAMINATION TYPE: XR chest 2V DATE OF EXAM: 11/29/2018 COMPARISON: Chest x-ray November 18, 2018 and older studies. CTA chest October 16, 2019. HISTORY: Shortness of breath for a few days. TECHNIQUE: Frontal and lateral views of the chest are obtained. FINDINGS: There is persistent small to moderate-sized left pleural effusion. There is small right pl eural effusion improved from prior studies. Mild to moderate central interstitial edema is redemonstr ated bilaterally. Cardiac silhouette size is stable and upper limits of normal. The osseous structure s are intact. IMPRESSION: Mild to moderate diffuse interstitial edema and/or less likely infiltrates redemonstrate d. Persistent small to moderate-sized left pleural effusion with associated left basilar atelectasis and/or infiltrate redemonstrated felt fairly stable. Improving small right pleural effusion noted.
--- NOTE | 2018-11-29 11:37 | CT ---
EXAMINATION TYPE: CT brain wo con DATE OF EXAM: 11/29/2018 COMPARISON: CT brain August 05, 2013. PET/CT from 2015. HISTORY: YURY, Headache. History of breast cancer. CT DLP: 1083..4 mGycm. Automated Exposure Control for Dose Reduction was Utilized. TECHNIQUE: CT scan of the head is performed without contrast. FINDINGS: There is no acute intracranial hemorrhage or midline shift identified. The ventricles an d sulci are within normal limits in size. There are multifocal areas of low attenuation throughout th e bilateral brain parenchymal, largest areas of involvement are right occipital level near axial imag e 28 and high right posterior frontal level near axial image 41. There is involvement in the bilatera l cerebellar hemispheres near axial image 13 The globes are intact and the visualized sinuses are oneal ar. IMPRESSION: No acute intracranial hemorrhage or midline shift is seen. Multifocal areas of low atten uation with newsome-white matter blurring are suspicious for metastatic disease given history of metasta tic breast cancer on review of patient's prior studies on PACS system. Consider contrast-enhanced CT and/or MRI to confirm.
[2018-11-29] MEDS ORDERED: DEXAMETHASONE SOD PHOSPHATE 10 MG/ML 1 ML VIAL IV STA (13:25)
[2018-11-29 13:56] VITALS: BP 95/63; PULSE 86; RESP 20; TEMP 97.6
== END 2018-11-29 14:12 | disposition home or self-care (01) ==
LOC: EC 09:32
DX: C79.31 Secondary malignant neoplasm of brain (principal); C78.00 Secondary malignant neoplasm of unspecified lung; C50.912 Malignant neoplasm of unspecified site of left female breast; J90 Pleural effusion, not elsewhere classified; R91.8 Other nonspecific abnormal finding of lung field; J81.1 Chronic pulmonary edema; Z79.82 Long term (current) use of aspirin; Z88.0 Allergy status to penicillin; Z90.12 Acquired absence of left breast and nipple
CPT/HCPCS: 36415; 93005; 83880; 80048; 82550; 83605; 83735; 85025; 85610; 71046; 70450; 99284; 96374; 96375 ×4; 96361 ×3; J2270; J1200; J1100; J2405; J0131

== ENCOUNTER → 2018-12-11 | Outpatient (CLI) | payer OTHER ==
--- NOTE | 2018-12-11 09:37 | MR ---
PRE AND POSTCONTRAST ENHANCED MRI OF THE BRAIN: CLINICAL HISTORY: Metastatic breast carcinoma CONTRAST: 6 ML Multihance Multiplanar and multispin-echo imaging of the brain was performed both before and after the administr ation of contrast. There are innumerable ring-enhancing lesions throughout the infratentorial and supratentorial portion s of the brain. Infratentorial lesions are noted to number between 25 and 30 the largest lesion withi n the left cerebellar hemisphere measuring 3.1 x 2.3 cm. There is surrounding vasogenic edema. Small Medullary and pontine lesions are also noted. In the supratentorial brain there are approximately gre ater than 30 lesions noted on the right greater than 30 lesions seen on the left. The largest right c erebral lesion is seen within the posterior parietal lobe and measures 3.3 x 2.2 cm and the largest l esion within the left cerebral hemisphere measures approximately 1.2 cm. There is no evidence for midline shift or mass effect. Acute intracranial hemorrhage or extra-axial collection is not evident. There are no abnormal areas of increased or decreased signal intensity within the brain parenchyma. The paranasal sinuses and mastoid air cells are well-aerated. IMPRESSION: There are innumerable ring-enhancing lesions throughout the infratentorial and supratentorial portion s of the brain consistent with metastatic disease.
== END ==
LOC: RADMRIMAIN 07:29
PROVIDERS: ATTEND Radiology Radiation Oncology
DX: C79.31 Secondary malignant neoplasm of brain (principal); C50.412 Malignant neoplasm of upper-outer quadrant of left female breast
CPT/HCPCS: 70553

== ENCOUNTER 2018-12-17 15:26 | Observation (INO) | payer OTHER ==
[2018-12-17] MEDS ORDERED: ONDANSETRON 4 MG/2 ML VIAL IVP STA (16:06)
[2018-12-17] MEDS ORDERED: HYDROmorphone 1 MG/ML 1 ML SYRINGE IVP STA (16:07)
[2018-12-17 16:19] LABS: Anisocytosis Slight; Basophils % (A) 0 %; Eosinophils # (A) 0.1 k/uL (0-0.7); Eosinophils % (A) 1 %; HCT 41.2 % (34.0-46.0); HGB 13.2 gm/dL (11.4-16.0); Lymphocytes # (A) 0.9 k/uL (1.0-4.8); Lymphocytes % (A) 8 %; MCH 26.9 pg (25.0-35.0); MCHC 32.2 g/dL (31.0-37.0); MCV 83.7 fL (80.0-100.0); Mean Platelet Volume 6.6; Monocytes # (A) 0.5 k/uL (0-1.0); Monocytes % (A) 4 %; Neutrophils # (A) 9.4 k/uL (1.3-7.7); Neutrophils % (A) 86 %; Platelet Count 219 k/uL (150-450); RBC 4.92 m/uL (3.80-5.40); RDW 16.4 % (11.5-15.5); WBC 10.9 k/uL (3.8-10.6)
[2018-12-17 16:27] LABS: ALT 111 U/L (9-52); AST 52 U/L (14-36); Albumin 3.9 g/dL (3.5-5.0); Alkaline Phosphatase 145 U/L (38-126); Anion Gap 5 mmol/L; Blood Urea Nitrogen 15 mg/dL (7-17); Calcium 8.6 mg/dL (8.4-10.2); Carbon Dioxide 26 mmol/L (22-30); Chloride 103 mmol/L (98-107); Glucose 106 mg/dL (74-99); Potassium 4.4 mmol/L (3.5-5.1); Sodium 134 mmol/L (137-145); Total Bilirubin 0.7 mg/dL (0.2-1.3)
[2018-12-17] MEDS ORDERED: NALOXONE 0.4 MG/ML 1 ML VIAL IV STA (16:37)
[2018-12-17] MEDS ORDERED: SODIUM CHLORIDE 0.9% 1,000 ML IV STA (16:42)
[2018-12-17] MEDS ORDERED: DEXAMETHASONE SOD PHOSPHATE 10 MG/ML 1 ML VIAL IV STA (17:36)
[2018-12-17] MEDS ORDERED: NALOXONE 0.4 MG/ML 1 ML VIAL IV PRN (17:45)
--- NOTE | 2018-12-17 18:03 | ED ---
General Adult HPI - General Chief complaint: Headache Stated complaint: Headache Time Seen by Provider: 12/17/18 15:54 Source: patient Mode of arrival: wheelchair Limitations: no limitations - History of Present Illness Initial comments: 48-year-old female with a history of left-sided breast cancer metastasis to the spine and bone presents to the emergency determine for a chief of pain of headache. Patient states the headache is across the frontal aspect of her head. She states she has had this type of headache before. Patient states it started around 6 hours ago. She states that [place] she takes at home are not helping. She had an MRI a week ago and states she does not want anymore scans. Patient states she is here for pain control to feel more comfortable. Patient has no other complaints at this time including shortness of breath, chest pain, abdominal pain, nausea or vomiting, or visual changes. - Related Data Home Medications Medication Instructions Recorded Confirmed Cholecalciferol [Vitamin D3] 1,000 unit PO DAILY 10/16/18 12/17/18 Ascorbic Acid [Vitamin C] 1,000 mg PO DAILY 11/24/18 12/17/18 [id number] 2 tab PO Q6HR 11/29/18 12/17/18 [Excedrin] Ibuprofen [Advil] 400 mg PO Q8HR PRN 11/29/18 12/17/18 HYDROcodone/APAP 5-325MG [[place] 1 - 2 tab PO Q4H PRN 12/17/18 12/17/18 5-325] Ondansetron Odt [Zofran Odt] 4 mg PO Q8H PRN 12/17/18 12/17/18 Previous Rx's Medication Instructions Recorded Dexamethasone [Decadron] 4 mg PO Q6H #24 tablet 11/29/18 Allergies Allergy/AdvReac Type Severity Reaction Status Date / Time Penicillins AdvReac shaky Verified 12/17/18 16:30 Review of Systems ROS Statement: Those systems with pertinent positive or pertinent negative responses have been documented in the HPI. ROS Other: All systems not noted in ROS Statement are negative. Past Medical History Past Medical History: Cancer, GERD/Reflux, Pneumonia, Skin Disorder Additional Past Medical History / Comment(s): pleural effusions Sep 2018,lt breast cancer stage 4, Liver mass and vertebrae mass ,lung nodules(pt shated received chemo in aug 2018, past hx of shingles "few years ago" per family mets to the brain from breast ca History of Any Multi-Drug Resistant Organisms: None Reported Past Surgical History: Tubal Ligation Additional Past Surgical History / Comment(s): "bronchiowash" left breast bx, lt breast masectomy and senital node bx, liver core bx Past Anesthesia/Blood Transfusion Reactions: No Reported Reaction Past Psychological History: Anxiety, Depression Smoking Status: Never smoker Past Alcohol Use History: None Reported Past Drug Use History: None Reported - Past Family History Sister(s) Family Medical History: Deep Vein Thrombosis (DVT) General Exam Limitations: no limitations General appearance: lethargic Head exam: Present: atraumatic, normocephalic, normal inspection Eye exam: Present: normal appearance, PERRL, EOMI. Absent: scleral icterus, conjunctival injection, periorbital swelling ENT exam: Present: normal exam, mucous membranes moist Neck exam: Present: normal inspection, full ROM. Absent: tenderness, meningismus, lymphadenopathy Respiratory exam: Present: normal lung sounds bilaterally. Absent: respiratory distress, wheezes, rales, rhonchi, stridor Cardiovascular Exam: Present: regular rate, normal rhythm, normal heart sounds. Absent: systolic murmur, diastolic murmur, rubs, gallop, clicks Neurological exam: Present: alert, oriented X3, CN II-XII intact, other (Moving all extremities, sensation intact in all extremities) Psychiatric exam: Present: normal affect, normal mood Course Vital Signs 12/17/18 12/17/18 12/17/18 15:40 16:29 16:30 Temperature 97.9 F Pulse Rate 72 98 42 L Respiratory 18 18 8 L Rate Blood Pressure 131/79 137/86 127/71 O2 Sat by Pulse 98 98 Oximetry 12/17/18 12/17/18 12/17/18 16:37 16:44 16:52 Temperature Pulse Rate 70 73 Respiratory 8 L 16 18 Rate Blood Pressure 142/84 140/72 O2 Sat by Pulse 100 98 Oximetry 12/17/18 12/17/18 12/17/18 17:15 17:30 17:45 Temperature Pulse Rate 75 64 67 Respiratory 17 15 14 Rate Blood Pressure 127/76 119/97 120/73 O2 Sat by Pulse 100 100 99 Oximetry 12/17/18 12/17/18 12/17/18 18:00 18:15 18:30 Temperature Pulse Rate 66 70 60 Respiratory 18 15 21 Rate Blood Pressure 128/75 141/83 157/76 O2 Sat by Pulse 100 100 100 Oximetry 12/17/18 18:45 Temperature Pulse Rate 61 Respiratory 18 Rate Blood Pressure 137/104 O2 Sat by Pulse 100 Oximetry - Reevaluation(s) Reevaluation #1: 12/17/18 18:02 I reviewed patient's records and noted she has had Dilaudid in the past. However I did give patient a milligram of Dilaudid here in the emergency department and she seemed to have had a vasovagal reaction. Patient is now doing much better. Medical Decision Making - Medical Decision Making 48-year-old female presents to the emergency determine for chief complaint of headache. Patient does have brain cancer which has metastasized from bone and breast. She has had this type of pain before. She had an MRI 7 days ago which showed multiple lesions in the brain. Patient states she does not want anymore scans at this time and is here for pain control. A sequestered in which were generally unremarkable. Patient was given Dilaudid which did cause her to have a vasovagal reaction. Patient did receive this before in the hospital according to records. Pain has improved at this time. Discussed with family and they would like to admit patient for pain management. Dr Simon discussed case with Dr. Cordoba and Dr. Brock who accepted admission. - Lab Data Result diagrams: 12/17/18 15:44 12/17/18 15:44 Lab Results 12/17/18 12/17/18 Range/Units 15:44 15:44 WBC 10.9 H (3.8-10.6) k/uL RBC 4.92 (3.80-5.40) m/uL Hgb 13.2 (11.4-16.0) gm/dL Hct 41.2 (34.0-46.0) % MCV 83.7 (80.0-100.0) fL MCH 26.9 (25.0-35.0) pg MCHC 32.2 (31.0-37.0) g/dL RDW 16.4 H (11.5-15.5) % Plt Count 219 (150-450) k/uL Neutrophils % 86 % Lymphocytes % 8 % Monocytes % 4 % Eosinophils % 1 % Basophils % 0 % Neutrophils # 9.4 H (1.3-7.7) k/uL Lymphocytes # 0.9 L (1.0-4.8) k/uL Monocytes # 0.5 (0-1.0) k/uL Eosinophils # 0.1 (0-0.7) k/uL Basophils # 0.0 (0-0.2) k/uL Anisocytosis Slight Sodium 134 L (137-145) mmol/L Potassium 4.4 (3.5-5.1) mmol/L Chloride 103 (98-107) mmol/L Carbon Dioxide 26 (22-30) mmol/L Anion Gap 5 mmol/L BUN 15 (7-17) mg/dL Creatinine 0.33 L (0.52-1.04) mg/dL Est GFR (CKD-EPI)AfAm >90 (>60 ml/min/1.73 sqM) Est GFR (CKD-EPI)NonAf >90 (>60 ml/min/1.73 sqM) Glucose 106 H (74-99) mg/dL Calcium 8.6 (8.4-10.2) mg/dL Total Bilirubin 0.7 (0.2-1.3) mg/dL AST 52 H (14-36) U/L ALT 111 H (9-52) U/L Alkaline Phosphatase 145 H (38-126) U/L Total Protein 7.0 (6.3-8.2) g/dL Albumin 3.9 (3.5-5.0) g/dL Disposition Clinical Impression: Intractable pain, History of brain cancer Disposition: ADMITTED IP TO THIS [facility] Condition: Fair Is patient prescribed a controlled substance at d/c from ED?: No Time of Disposition: 18:02
[2018-12-17] MEDS ORDERED: HYDROmorphone 0.5 MG/0.5 ML SYRINGE IVP STA (18:06)
[2018-12-17] MEDS: SODIUM CHLORIDE 0.9% 1,000 ML IV SCH (18:56)
[2018-12-17] MEDS ORDERED: HYDROmorphone 0.5 MG/0.5 ML SYRINGE IVP PRN ×2 (21:34→21:38)
[2018-12-17] MEDS ORDERED: LORazepam 2 MG/ML INJ IV PRN (22:41)
[2018-12-17 22:54] VITALS: RESP 16
[2018-12-18] MEDS ORDERED: DEXAMETHASONE SOD PHOSPHATE 4 MG/ML 1 ML VIAL IV SCH
[2018-12-18] MEDS: DEXAMETHASONE SOD PHOSPHATE 4 MG/ML 1 ML VIAL IV SCH ×3 (00:11→12:19)
[2018-12-18] MEDS: ASPIRIN-ACET-CAFF 250-250-65MG 1 EACH TAB PO SCH ×3 (00:17→07:59)
[2018-12-18] MEDS: MORPHINE SULFATE 2 MG/ML SYRINGE IVP PRN ×3 (01:15→07:30)
[2018-12-18] MEDS: LORazepam 2 MG/ML INJ IV PRN ×3 (01:15→07:30)
[2018-12-18] MEDS: SODIUM CHLORIDE 0.9% 1,000 ML IV SCH (05:12)
[2018-12-18 05:25] VITALS: BP 97/65; PULSE 100; TEMP 98.1
--- NOTE | 2018-12-18 06:42 | HP ---
HISTORY AND PHYSICAL DATE OF SERVICE: 12/16/2018 CHIEF COMPLAINTS: Headache and some change in mental status. HISTORY OF PRESENT ILLNESS: This 48-year-old woman with a past medical history of multiple medical problems including history of GERD, history of pneumonia, history of pleural effusion, history of breast cancer stage IV with liver , lung nodules, anxiety, depression being followed by Dr. Villarreal and Dr. Garay in the outpatient setting, was complaining headache. Patient also has some tired and weakness and complaints of change in mental status. Patient came to [facility] and was admitted for further evaluation and treatment. The headache was in the frontal aspect of the head and the [place] at home was apparently not helping. The patient did have an MRI done. MRI of the brain done about a few days ago which showed enhancing lesions throughout and also vertebral portions of the brain indicating metastatic disease. Currently patient unable to give a coherent history. Most of the history taken from discussion with staff and review of the chart and discussion with the family at the bedside at this time. PAST MEDICAL HISTORY: History of GERD, history of pneumonia, history of pleural effusion, history of breast cancer stage IV with metastatic disease, anxiety and depression. MEDICATIONS: Prior to admission include: 1. Hydrocodone 5 mg q.4h p.r.n. 2. Zofran 4 mg q.8h p.r.n. 3. Advil 400 mg q.8h p.r.n. 4. Decadron 4 mg p.o. q.6h. 5. Vitamin D3 1000 mg p.o. daily. 6. Excedrin 1-2 tabs p.o. q.6h p.r.n. 7. Vitamin C 1000 mg p.o. daily. ALLERGIES: PENICILLIN. FAMILY HISTORY: DVT in the family. SOCIAL HISTORY: No history of smoking. No history of alcohol. REVIEW OF SYSTEMS: Could not be taken because of the patient's change in mental status. PHYSICAL EXAM: Patient minimally responds. Pulse 70, blood pressure 141/83, respiration 16, temperature is normal. Pulse ox 100 percent on room air. HEENT: Conjunctivae normal. Oral mucosa moist. Neck is no jugular venous distention. No carotid bruit. No lymph enlargement. Cardiovascular system: S1, S2. RESPIRATORY: Breath sounds diminished in the bases. A few scattered rhonchi. No crackles. ABDOMEN: Soft, nontender. No mass palpable. Legs: No edema. No swelling. Nervous system: Higher functions as mentioned earlier. The patient is minimally responsive. Otherwise a full neurologic exam could not be carried out. Skin: No ulcer, rash. Joints: No active deforming arthropathy. LAB INVESTIGATIONS: Lab investigations at this time shows WBC 10.8, hemoglobin 13.2 sodium 134, potassium 4.4, AST is 52, ALT is 111. ASSESSMENT: 1. Change in mental status, acute metabolic toxic encephalopathy secondary from multiple brain METS with possible cerebral edema. 2. Metastatic breast cancer stage IV with mets to the vertebra, lung, probably lung mass and brain. 3. Anxiety, depression. 4. Gastroesophageal reflux disease. 5. History of pneumonia. 6. Increased WBC. 7. Hyponatremia. 8. Increased AST, ALT, alkaline phosphatase. RECOMMENDATION: In this 48-year-old woman who presented with multiple complex medical issues, we will monitor the patient closely. Continue the current medication, continue symptomatic treatment. Otherwise at this time, I recommend continue with dexamethasone and I would also recommend hydromorphone on a p.r.n. basis. I would also recommend initiate broad- spectrum IV antibiotics and the currently the patient is deemed NO CODE. NO CPR , NO VENT. We will also obtain cultures as well. The prognosis guarded because of multiple complex medical issues and further recommendations to follow. Discussed with family who understands and agrees. A copy of dictation being forwarded to Dr. Villarreal who is the primary physician. See orders for details. MMODL / IJN: [id number] / [id number]
[2018-12-18] MEDS ORDERED: PANTOPRAZOLE 40 MG/10 ML VIAL IVP SCH (09:00)
[2018-12-18 10:08] VITALS: BMI 23.2
[2018-12-18] MEDS: MORPHINE SULFATE 4 MG/ML SYRINGE IVP PRN ×2 (10:08→12:19)
--- NOTE | 2018-12-18 23:44 | P.CONS ---
History of Present Illness - Reason for Consult Consult date: 12/18/18 metastatic breast cancer. 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 She has been treated with oral steroids, as well as Cellcept and Dapsone .She had been around 2008 by myself, for Rituxan, but it was not covered by her insurance. She was followed by Alexa Cody and Alfred ( at [facility]), and Rituxan was again recommended, and apparently now, approved by her insurance in 12/10. she was thus referred here by Dr Cody to begin the same. She completed 4 weekly treatments on 03/03/13. She tolerated them very well and noticed a good symptomatic response. Unfortunately, she relapsed after a fairly short time,and was sent back here by Dr Nadir Mock for repeat treatment. This did result in repeat remission. The pt noted a lump in the outer part of her left breast initially in early . This enlarged and became progressively tender. She had a mammogram on revealing suspicious,coarse heterogenous calcifications. She had an US, and then an US guided core biopsy on the same day. The tumor was 4.2 cm in maximal dimension on US. The biopsy revealed extensive DCIS, with invasive ductal carcinoma grade II. At her visit in 02/09, it was recommended to the patient that we await tumor markers which were pending at the time of visit. Given the size of the tumor, if it was triple negative for HER-2 positive, she was strongly urged to consider neoadjuvant systemic therapy. We also strongly recommended genetic testing. The patient did not agree to any of the above at the time for initial visit and stated that she would consider her options. She decided to proceed with surgery and had a left mastectomy with sentinel node biopsy on 03/22/15. This revealed multifocal invasive ductal carcinoma, arising in a background of extensive DCIS. Largest focus of invasive carcinoma was 9 mm. Overall grade was grade 3. DCIS was at least 5 cm in size. Margins were uninvolved. Total number of sentinel nodes examined were 2 with an additional 4 nodes sampled. All nodes were negative for involvement. Marker status revealed estrogen receptor less than 1, progesterone receptor 0, and HER-2 3+ (positive). The patient tolerated surgery well. We had discussed in the office, that if marker status was positive, her tumor would be considered more aggressive and would require systemic therapy. The patient decided that she did not want any systemic therapy, and did not follow-up with either myself or with surgery. In 01/12, the patient developed low back pain with some radiation down the left leg. His became progressively worse. She was given a Medrol Dosepak by her PCP without much improvement and actually ended up in the ER at [facility]. She had partial relief of symptoms with methocarbamol initially, with subsequent progression. She was seen back by her PCP, and had an MRI on 09/14, that showed abnormal marrow signal and enhancement of the elbow notable body, as well as T11 which was highly suspicious for metastatic disease. At L1 there was severe left neuroforaminal narrowing and mild left lateral spinal cord stenosis. The patient was therefore referred back here, and seen on 03/14/18. the patient was started on Decadron, as well as fentanyl in addition to the Graham. She was referred to Ortho spine for bone biopsy, as well as to radiation oncology. She had restaging CT scans done which showed unfortunately , bilateral lung metastasis as well as significant tumor burden in both lobes of the liver. The patient was seen back at her own request on 04/01/18. She and her stated that they had questions about the upcoming bone biopsy. they did not want to have a bone biopsy as "she already had damage in her bones"! she was therefore started on radiation, and underwent a liver biopsy on 04/08/18. This confirmed metastatic carcinoma consistent with breast primary. Subsequent marker testing revealed this to be similar, with ER/PA negative and her-2 3+ ( positive). she completed her radiation to the spine around 04/18/18. she was recommended treatment with Docetaxel/herceptin/Perjeta, but decided to wait until a second opinion at the [facility]. She was seen at her own request on 05/05/18 c/o progressive SOB over 2 weeks. She denied any f/c/cough ofr chest pain. This appeared to be due to progression of tumor, and she was advice to start treatment as soon as possible. She still waited until she had a consultation at the [facility], who agreed with the above recommendations. she started treatment with docetaxel/Herceptin/Perjeta on 05/20/18 and is status post 6 cycles, completing those on 09/02/18. She had 1 cycle of Herceptin and Perjeta, which was then stopped due to SOB, orthopnea and LE swelling. She had an inpt admission at [facility] for SOB in 09/14 . She had b/ l pleural effusions, improved with diuresis. She then had persistent LE swelling , also improved with diuresis She had an ECHO on 10/08/18 showing a EF of 50-55% and no pericardial effusion. the patient complained of increasing shortness of breath when seen on . CT of the chest and chest x-ray were performed, which showed no evidence of PE, but did show significant bilateral pleural effusions. The patient was admitted to [facility] on 10/16/18 with increasing shortness of breath. Her case was discussed with cardiology. They reviewed the echo from 10/08/18, as stated that the EF was overestimated, and the patient did have significant decrease of radiation fraction, into the 35-40% range. She underwent bilateral thoracentesis, with cytology negative for malignancy. She improved post thoracentesis and diuresis and was discharged home on oral Lasix. Due to the drop in her ejection fraction, Herceptin and Perjeta continued to be held. The patient was continued on follow-up in the office without evidence of progression initially. Shortness of breath and leg swelling did recover but was controlled well with Lasix. chest imaging did show some bilateral infiltrative changes in the lungs, leading to bronchoscopy on 11/25/18, with cytology and infection workup negative The patient came into the emergency room on 11/29/18 complaining of headache, and mild numbness in her left upper extremity. CT of the brain revealed evidence of multiple metastatic lesions. As the patient was relatively asymptomatic, she was started on steroids and discharged. Radiation oncology were contacted the next day, and immediately set up an appointment for the patient. The patient and her did not keep her appointment. She did have a MRI on 12/11/18 confirming multiple brain metastasis bilaterally. The patient subsequently started to deteriorate, with progressive weakness, decreasing appetite and lethargy as well as confusion. She also developed headache, and occasionally more generalized pain which was not responding to her pain medications at home. Due to progression of the symptoms, she was brought back to the emergency room, and admitted for further management. Consult was placed for further evaluation and recommendations Review of Systems Constitutional: Reports anorexia, Reports chronic pain, Reports weakness Eyes: denies blurred vision, denies pain Ears: deny: decreased hearing, ear discharge, earache, tinnitus Ears, nose, mouth and throat: Reports headache, Denies sore throat Breasts: Reports as per HPI Cardiovascular: Reports dyspnea on exertion, Reports edema, Reports shortness of breath Respiratory: Reports dyspnea Gastrointestinal: Reports constipation Genitourinary: Denies dysuria, Denies hematuria Menstruation: Reports postmenopausal Musculoskeletal: Reports gait dysfunction, Reports muscle weakness Integumentary: Denies pruritus, Denies rash Neurological: Reports balance difficulties, Reports change in mentation, Reports confusion, Reports gait dysfunction, Reports memory loss, Reports weakness Psychiatric: Reports confusion, Reports memory loss Endocrine: Reports fatigue, Reports weight change Hematologic/Lymphatic: Reports as per HPI Past Medical History Past Medical History: Cancer, GERD/Reflux, Pneumonia, Skin Disorder Additional Past Medical History / Comment(s): pleural effusions Sep 2018,lt breast cancer stage 4, Liver mass and vertebrae mass ,lung nodules(pt shated received chemo in aug 2018, past hx of shingles "few years ago" per family mets to the brain from breast ca History of Any Multi-Drug Resistant Organisms: None Reported Past Surgical History: Tubal Ligation Additional Past Surgical History / Comment(s): "bronchiowash" left breast bx, lt breast masectomy and senital node bx, liver core bx Past Anesthesia/Blood Transfusion Reactions: No Reported Reaction Past Psychological History: Anxiety, Depression Smoking Status: Never smoker Past Alcohol Use History: None Reported Past Drug Use History: None Reported - Past Family History Sister(s) Family Medical History: Deep Vein Thrombosis (DVT) Medications and Allergies Home Medications Medication Instructions Recorded Confirmed Type Cholecalciferol [Vitamin D3] 1,000 unit PO DAILY 10/16/18 12/17/18 History Ascorbic Acid [Vitamin C] 1,000 mg PO DAILY 11/24/18 12/17/18 History Uzfhdnf-[id number]-Uowt [id number] 2 tab PO Q6HR 11/29/18 12/17/18 History [Excedrin] Dexamethasone [Decadron] 4 mg PO Q6H #24 tablet 11/29/18 12/17/18 Rx Ibuprofen [Advil] 400 mg PO Q8HR PRN 11/29/18 12/17/18 History HYDROcodone/APAP 5-325MG [Graham 1 - 2 tab PO Q4H PRN 12/17/18 12/17/18 History 5-325] Ondansetron Odt [Zofran Odt] 4 mg PO Q8H PRN 12/17/18 12/17/18 History Allergies Allergy/AdvReac Type Severity Reaction Status Date / Time Penicillins AdvReac shaky Verified 12/17/18 16:30 Physical Exam Vitals: Vital Signs Temp Pulse Resp BP Pulse Ox 12/18/18 05:00 98.1 F 100 16 97/65 99 12/18/18 00:00 63 16 Intake and Output 12/18/18 12/18/18 12/19/18 14:59 22:59 06:59 Intake Total 600 Balance 600 Intake: Intake, IV Titration 600 Amount Sodium Chloride 0.9% 1, 600 000 ml @ 75 mls/hr IV . [id number] Rx#:[id number] Other: Voiding Method Diaper # Voids 2 Weight 57.606 kg - Constitutional obtunded, not opening eyes, moaning intermittently General appearance: mild distress - EENT Eyes: PERRLA ENT: hearing grossly normal - Neck Neck: lymphadenopathy Thyroid: bilateral: normal size - Respiratory Respiratory: bilateral: diminished - Cardiovascular Rhythm: regular Heart sounds: normal: S1, S2 - Gastrointestinal General gastrointestinal: normal bowel sounds, soft - Integumentary Integumentary: normal - Neurologic patient obtunded as noted above. not responding to verbal commands. Occasionally opens eyes. Not moving left side. reflexes are present on left side. Neurologic: focal deficits - Musculoskeletal Musculoskeletal: generalized weakness, left sided weakness Results CBC & Chem 7: 12/17/18 15:44 12/17/18 15:44 Chest x-ray: report reviewed CT Scan - head: report reviewed MRI - head: report reviewed Assessment and Plan (1) Brain metastases Narrative/Plan: the patient has progressive metastatic breast cancer. As noted in the HPI, unfortunately at the time of her initial diagnosis, she decided against any adjuvant systemic therapy. Initial presentation with metastatic disease was quite aggressive, but fortunately she had a very good clinical response to chemoimmunotherapy. She was then on maintenance immunotherapy but that had to be discontinued due to drop in ejection fraction and symptomatic CHF. As noted in the HPI, the patient presented with brain metastasis on 11/29/18. At that time she was relatively asymptomatic from the same. She was started on steroids with a plan to start for brain radiation urgently. Unfortunately she did not keep appointments at radiation oncology. This was discussed with her . He stated that initially that canceled appointments because of the weather. However, he also stated that he did not think that the radiation was going to be of any benefit anyway. He also reiterated to me, as he has done in the office many times before, that he does not trust chemotherapy and believes that it is essentially poison. The patient has had marked progressive decline since her diagnosis. Currently she was essentially unresponsive. While this is partially due to the effect of pain medications and Ativan, mental status does appear to have declined markedly. She has developed progressive left-sided weakness and is nonambulatory. In this situation, it is unlikely that she would be able to derive any benefit from radiation keeping in mind tolerance issues and possible side effects. The above was discussed with her family. They were advised that it is unlikely that she would be able to tolerate any kind of aggressive therapy, including radiation, unless there was a dramatic improvement with IV steroids. So far there does not appear to have occurred. They expressed understanding of the same, and were agreeable to discuss comfort care. Hospice will be consulted. Given her rapid decline, and very poor performance status, she would likely be a reasonable candidate to consider general inpatient hospice Status: Acute Code(s): C79.31 - SECONDARY MALIGNANT NEOPLASM OF BRAIN SNOMED Code(s): 78679193 (2) Intractable pain Narrative/Plan: due to progressive metastatic breast cancer. This is related to headaches, but is also more generalized. She was on fentanyl and Graham at home, but this was proven ineffective. She is currently having controlled with IV morphine. Strength as well as frequency will be increased. As noted, at this time hospice is being considered. Status: Acute Code(s): R52 - PAIN, UNSPECIFIED SNOMED Code(s): 05448641 (3) Breast cancer Narrative/Plan: clinical circumstances as described above. Status: Acute Code(s): C50.919 - MALIGNANT NEOPLASM OF UNSP SITE OF UNSPECIFIED FEMALE BREAST SNOMED Code(s): 796418063
--- NOTE | 2018-12-23 14:38 | DS ---
DISCHARGE SUMMARY FINAL DIAGNOSES: 1. Change in mental status, acute metabolic toxic encephalopathy secondary to multiple brain METS with possible cerebral edema. 2. Metastatic breast cancer stage IV with mets of vertebra, lung, possible lung mass and brain. 3. Anxiety, depression. 4. Gastroesophageal reflux disease. 5. History of pneumonia. 6. Increased WBC. 7. Hyponatremia. 8. Increased AST and ALT, alkaline phosphatase. 9. NO CODE, NO CARDIOPULMONARY RESUSCITATION. 10.Hospice measures. HISTORY OF PRESENT ILLNESS: This IS A 48-year-old woman with a past medical history of multiple medical problems was admitted with change in mental status, features of brain METS. The patient was stuporous and case was discussed with the family and Hematology/Oncology saw the patient, recommended hospice measures and the patient will be transitioned to hospice. Please refer to the hospice notes and other records for further details. The prognosis is extremely guarded throughout the hospitalization which was explained to the patient. Again, please refer to the multiple notes and history and physical as well as staff notes for further information. Also discussed with Dr. Villarreal. JOSE / SAVANNA: [id number] /
== END 2018-12-18 14:53 | disposition home or self-care (01) ==
LOC: EC 15:26 → 3NMEDONC 17:40 → INTOOBSV 17:40 → 3NMEDONC 18:42 → UNDODISIN 12-18 14:53
PROVIDERS: ADMIT Hospitalist; ATTEND Hospitalist
DX: G89.3 Neoplasm related pain (acute) (chronic) (principal); G92 Toxic encephalopathy; C79.51 Secondary malignant neoplasm of bone; C79.31 Secondary malignant neoplasm of brain; C78.7 Secondary malignant neoplasm of liver and intrahepatic bile duct; C78.02 Secondary malignant neoplasm of left lung; C78.01 Secondary malignant neoplasm of right lung; E87.1 Hypo-osmolality and hyponatremia; C50.912 Malignant neoplasm of unspecified site of left female breast; F32.9 Major depressive disorder, single episode, unspecified; F41.9 Anxiety disorder, unspecified; K21.9 Gastro-esophageal reflux disease without esophagitis; M48.061 Spinal stenosis, lumbar region without neurogenic claudication; Z17.1 Estrogen receptor negative status [ER-]; D72.829 Elevated white blood cell count, unspecified; R55 Syncope and collapse; T40.2X5A Adverse effect of other opioids, initial encounter; Z86.19 Personal history of other infectious and parasitic diseases; Z87.01 Personal history of pneumonia (recurrent); Z90.12 Acquired absence of left breast and nipple; Z79.82 Long term (current) use of aspirin; Z79.52 Long term (current) use of systemic steroids; Z88.0 Allergy status to penicillin; Z66 Do not resuscitate; Z92.21 Personal history of antineoplastic chemotherapy; Z83.2 Family history of diseases of the blood and blood-forming organs and certain disorders involving the immune mechanism
CPT/HCPCS: 96376; 96361 ×2; 96365; 96375 ×3; 99284; 36415; 80053; 85025; G0378 ×2; J2060 ×2; J2270 ×2; J1100 ×2; J2310; J2405; J0696; J1170; C9113; 96374; 99285

== ENCOUNTER 2018-12-18 13:31 | Inpatient (IN) | payer MEDICAID ==
[2018-12-18] MEDS ORDERED: ATROPINE OPHTH SOLN 1% 5ML BTL SUBLINGUAL PRN (13:42)
[2018-12-18] MEDS ORDERED: ACETAMINOPHEN SUPPOSITORY 650 MG SUPP RECTAL PRN (13:42)
[2018-12-18] MEDS ORDERED: ONDANSETRON 4 MG/2 ML VIAL IVP PRN (13:42)
[2018-12-18] MEDS ORDERED: BISACODYL 10 MG SUPP RECTAL PRN (14:09)
[2018-12-18] MEDS: LORazepam 2 MG/ML INJ IV PRN (15:24)
[2018-12-18] MEDS: SCOPOLAMINE 1.5MG/72HR PATCH TRANSDERM SCH (15:27)
[2018-12-18] MEDS: MORPHINE SULFATE (100 MG/2 ML) 100 MG in SODIUM CHLORIDE 0.9% 100 ML IV SCH (15:28)
[2018-12-18 16:12] VITALS: BMI 23.2
--- NOTE | 2018-12-18 19:57 | PN ---
PROGRESS NOTE DATE OF SERVICE: 12/18/2018 This 48-year-old woman who was admitted with change in mental status, CA of breast with multiple METS and the patient was not improving and the sensorium did not improve. The case was discussed with family by Dr. Garay and family is opting for hospice care at this time. EXAM: The patient is confused, stuporous otherwise. The vitals are noted. HEENT: Conjunctivae normal. Oral mucosa moist. Neck is no jugular venous distention. No carotid bruit. CARDIOVASCULAR: S1, S2. RESPIRATORY: Breath sounds diminished at the bases. Scattered rhonchi and crackles. ABDOMEN: Soft, nontender. NERVOUS SYSTEM: Diffusely weak. LAB INVESTIGATIONS: Labs are not available. ASSESSMENT: 1. Change in mental status, acute metabolic encephalopathy secondary from multiple brain metastasis, possibly cerebral edema from carcinoma of the breast with metastasis. 2. History of breast cancer stage IV with mets to vertebra, lung, possibly lung mass and brain. 3. Anxiety and depression. 4. Gastroesophageal reflux disease. 5. History of pneumonia. 6. History of increased WBC. 7. Hyponatremia. 8. Increased AST, ALT, alkaline phosphatase. 9. No CODE, NO CPR, NO VENT. 10.Hospice care. RECOMMENDATIONS AND DISCUSSION: I recommend to continue current medication, continue to monitor and symptomatic treatment. Otherwise at this time I recommend continue with morphine and hospice measures. Discussed with the family. Discussed with hospice. Guarded prognosis. Further recommendations to follow. MMODL / IJN: [id number] /
[2018-12-19] MEDS: DEXAMETHASONE SOD PHOSPHATE 4 MG/ML 1 ML VIAL IV PRN (15:10)
[2018-12-19] MEDS: LORazepam 2 MG/ML INJ IV PRN (19:00)
--- NOTE | 2018-12-19 19:04 | PN ---
PROGRESS NOTE DATE OF SERVICE: 12/19/2018 This 48-year-old woman who was admitted with change in mental status , metabolic encephalopathy secondary to multiple brain metastases is being closely monitored. The patient is on hospice care. The patient is on morphine drip. The patient is barely responsive. On exam, pulse 85, blood pressure 109/71, respiration 12, temperature 97.2, pulse ox 99% on 2 L. HEENT: Conjunctivae normal. NECK: No jugular venous distention. CARDIOVASCULAR SYSTEM: S1, S2 muffled. RESPIRATORY SYSTEM: Breath sounds diminished at the bases. A few scattered rhonchi. ABDOMEN: Soft. NERVOUS SYSTEM: Patient is sedated. Labs are not available. ASSESSMENT: 1. Change in mental status, acute metabolic encephalopathy, toxic encephalopathy secondary to multiple brain metastases, possibly cerebral edema from carcinoma of breast with metastases. 2. History of breast cancer, stage IV, with metastases to vertebrae, lungs, possibly lung mass and brain. 3. Anxiety, depression. 4. Gastroesophageal reflux disease. 5. History of pneumonia. 6. Increased white count. 7. Hyponatremia. 8. Increased AST, ALT, alkaline phosphatase. 9. NO CODE, NO CPR, NO VENT. 10.Hospice care. RECOMMENDATIONS AND DISCUSSION: I recommend to continue current medications, continue symptomatic treatment. Continue with hospice measures. Otherwise, comfort measures. Prognosis guarded. Further recommendations to follow. MMODL / IJN: [id number] /
[2018-12-20] MEDS: MORPHINE SULFATE (100 MG/2 ML) 100 MG in SODIUM CHLORIDE 0.9% 100 ML IV SCH ×2 (00:33→06:05)
[2018-12-20] MEDS: DEXAMETHASONE SOD PHOSPHATE 4 MG/ML 1 ML VIAL IV PRN (04:58)
[2018-12-20] MEDS: LORazepam 2 MG/ML INJ IV PRN ×2 (11:11→22:59)
--- NOTE | 2018-12-20 17:20 | PN ---
PROGRESS NOTE DATE OF SERVICE: 12/20/2018 This 48-year-old woman was admitted with breast cancer with mets; is on hospice. The patient is on a morphine drip. The dose has been reduced to 2 mg today. The patient is slightly more alert today. EXAM: Vitals are noted. Pulse is 80, respiration 14. HEENT: Conjunctivae normal. Oral mucosa moist. NECK: No jugular venous distention. No lymph node enlargement. CARDIOVASCULAR: S1, S2. RESPIRATORY: Diminished breath sounds at the bases. A few scattered rhonchi, no crackles. ABDOMEN: Soft, nontender. LEGS: No swelling. NERVOUS SYSTEM: Could not be examined. LABS: Not available. ASSESSMENT: 1. Change in mental status, acute metabolic encephalopathy, toxic encephalopathy secondary to multiple brain metastases, possibly cerebral edema from carcinoma of the breast with metastases. 2. History of breast cancer stage IV with metastases to the lungs and possibly lung mass in brain. 3. Anxiety, depression. 4. Gastroesophageal reflux disease. 5. History of pneumonia. 6. Increased WBC. 7. Hyponatremia. 8. Increased AST, ALT, alkaline phosphatase. 9. NO CODE, NO CPR, NO VENT. 10.Hospice care. RECOMMENDATIONS AND DISCUSSION: Recommend to continue current management, continue to monitor, continue symptomatic treatment. At this time we will monitor the patient closely, continue with morphine drip, hospice measures. Guarded prognosis. Further recommendations to follow. MMODL / IJN: [id number] /
[2018-12-20 18:35] VITALS: BP 105/67; TEMP 97.7
[2018-12-21] MEDS ORDERED: SALINE NASAL GEL 14.1 GM TUBE TOPICAL PRN
[2018-12-21] MEDS: DEXAMETHASONE SOD PHOSPHATE 4 MG/ML 1 ML VIAL IV PRN ×2 (08:21→19:27)
[2018-12-21 14:51] VITALS: PULSE 80
[2018-12-21] MEDS: DOCUSATE ORAL SOLN 100 MG/10 ML CUP PO SCH (15:08)
[2018-12-21] MEDS: MORPHINE SULFATE (100 MG/2 ML) 100 MG in SODIUM CHLORIDE 0.9% 100 ML IV SCH (15:09)
[2018-12-21] MEDS: SCOPOLAMINE 1.5MG/72HR PATCH TRANSDERM SCH (15:10)
[2018-12-21] MEDS: LORazepam 2 MG/ML INJ IV PRN (18:43)
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
[2018-12-22] MEDS: MORPHINE SULFATE (100 MG/2 ML) 100 MG in SODIUM CHLORIDE 0.9% 100 ML IV SCH (02:15)
[2018-12-22] MEDS: DOCUSATE ORAL SOLN 100 MG/10 ML CUP PO SCH ×3 (03:41→22:09)
[2018-12-22] MEDS: LORazepam 2 MG/ML INJ IV PRN ×2 (04:41→22:01)
[2018-12-22] MEDS: DEXAMETHASONE SOD PHOSPHATE 4 MG/ML 1 ML VIAL IV PRN (09:32)
--- NOTE | 2018-12-23 05:36 | PN ---
PROGRESS NOTE DATE OF SERVICE: 12/22/2018 PRESENTING COMPLAINT: Tired. INTERVAL HISTORY: This is a patient with multiple brain mets, currently under inpatient hospice. The patient's 3 sisters at the bedside. The patient has been trying some soup. Pain is controlled. Sitting up on a chair. REVIEW OF SYSTEMS: Done for constitutional, cardiovascular, GI, pulmonary; relevant findings as above. CURRENT MEDICATIONS: Current medications are reviewed that include morphine and scopolamine patch. PHYSICAL EXAMINATION: On examination, temperature 97.3, pulse 85, respiration 12, blood pressure 109/71, pulse ox 99% on room air. GENERAL APPEARANCE: Sitting up in a chair, tired appearing. EYES: Pupils equal. Conjunctivae pale. NECK: JVD not raised. Mass not palpable. RESPIRATORY: Effort normal. LUNGS: Diminished breath sounds. CARDIOVASCULAR: First and second sounds normal. No edema. ABDOMEN: Soft, nontender. PSYCH: Patient able to answer simple questions. INVESTIGATIONS: None. ASSESSMENT: 1. Breast cancer with brain metastasis, stage IV, including lung mass. 2. Anxiety, depression. 3. Gastroesophageal reflux disease. 4. Hospice care, comfort measures. PLAN: Care was discussed at length with the patient's 3 sisters at the bedside. The patient will be going home in the next day or 2. The patient's 25-year-old daughter will be there most of the time. The sisters will take turn. Also spoke to Benjamin, the manager social work who is coordinating the DC planning. Also spoke to the hospice at [facility] nurse coordinator who will finalize discharge planning. Total time spent today was about 40 minutes with over 25 minutes of discussion. MMRAHELL / ALINAN: [id number] /
[2018-12-23] MEDS: DOCUSATE ORAL SOLN 100 MG/10 ML CUP PO SCH ×2 (10:46→23:29)
[2018-12-23] MEDS: DEXAMETHASONE SOD PHOSPHATE 4 MG/ML 1 ML VIAL IV PRN (13:02)
[2018-12-23] MEDS ORDERED: MORPHINE SULFATE (100 MG/2 ML) 100 MG in SODIUM CHLORIDE 0.9% 100 ML IV SCH (17:15)
[2018-12-23] MEDS: MORPHINE SULFATE (100 MG/2 ML) 100 MG in SODIUM CHLORIDE 0.9% 100 ML IV SCH (17:20)
[2018-12-23 23:29] VITALS: RESP 12
[2018-12-24] MEDS: DEXAMETHASONE SOD PHOSPHATE 4 MG/ML 1 ML VIAL IV PRN (01:11)
[2018-12-24] MEDS: LORazepam 2 MG/ML INJ IV PRN (02:01)
--- NOTE | 2018-12-24 06:24 | PN ---
PROGRESS NOTE DATE OF SERVICE: 12/23/2018 PRESENT COMPLAINT: Tired. INTERVAL HISTORY: Patient with multiple brain mets. I saw this patient earlier today. Was on IV morphine. Tolerating liquid diet. The patient's 25-year-old daughter was present so was the hospice people. REVIEW OF SYSTEMS: Attempted for constitutional, cardiovascular, GI, pulmonary. Pain is controlled. PHYSICAL EXAMINATION: On examination, temperature 97.7, pulse 85, respiration 12, blood pressure 109/71, pulse ox 96% on room air. GENERAL APPEARANCE: Sitting up, awake, tired. EYES: Pupils equal. Conjunctivae pale. RESPIRATORY: Effort normal. LUNGS: Decreased breath sounds. CARDIOVASCULAR: First and second sounds normal. Patient answering simple questions. ASSESSMENT: 1. Metastatic breast cancer stage IV includes lung mass. 2. Anxiety, depression. 3. Gastroesophageal reflux disease. 4. Hospice care, comfort measures. 5. Pain control. PLAN: Later this afternoon patient was supposed to go home. Patient's morphine pump was started. Later on they called me that patient become lethargic, respiration rate had gone down. At this point decided to watch the patient overnight, see how she does. Morphine pump was temporally held and put on the previous dose. MMODL / IJN: [id number] /
[2018-12-24] MEDS: DOCUSATE ORAL SOLN 100 MG/10 ML CUP PO SCH (09:44)
[2018-12-24] MEDS: SCOPOLAMINE 1.5MG/72HR PATCH TRANSDERM SCH (15:59)
--- NOTE | 2018-12-26 09:53 | DS ---
DISCHARGE SUMMARY DATE OF ADMISSION: 12/18/2018 DATE OF DISCHARGE: 12/24/2018 FINAL DIAGNOSES: 1. Metastatic breast cancer, stage IV, including lung mass. 2. Anxiety, depression, not otherwise specified. 3. Gastroesophageal reflux disease. 4. Hospice care for comfort measures. HOSPITAL COURSE: This patient admitted with inpatient hospice for comfort measures. Was on IV morphine drip. Care was discussed with the patient and his daughter at the bedside. Also discussed with [facility] members including Michael. Equipment is being sent home. Medications were discussed. The patient is being put on a morphine pain pump. Patient is tolerating some diet. On examination, Respiration 12. LUNGS: Decreased breath sounds. DISCHARGE MEDICATIONS: 1. Morphine pain pump. 2. Decadron 4 mg q.6. 3. Scopolamine patch. DISPOSITION: Home with family, hospice/home health aide to follow up. Discussion and discharge planning more than 35 minutes. MMODL / ALINAN: [id number] /
== END 2018-12-24 17:00 | disposition hospice, home (50) | DRG 951 ==
LOC: 3NMEDONC 14:54
PROVIDERS: ADMIT Hospitalist; ATTEND Hospitalist
DX: Z51.5 Encounter for palliative care (principal); G92 Toxic encephalopathy; C78.00 Secondary malignant neoplasm of unspecified lung; C79.31 Secondary malignant neoplasm of brain; C79.51 Secondary malignant neoplasm of bone; E87.1 Hypo-osmolality and hyponatremia; C50.919 Malignant neoplasm of unspecified site of unspecified female breast; Z66 Do not resuscitate; D72.829 Elevated white blood cell count, unspecified; F32.9 Major depressive disorder, single episode, unspecified; F41.9 Anxiety disorder, unspecified; K21.9 Gastro-esophageal reflux disease without esophagitis; Z87.01 Personal history of pneumonia (recurrent); Z88.0 Allergy status to penicillin; Z79.82 Long term (current) use of aspirin; Z79.52 Long term (current) use of systemic steroids; Z82.49 Family history of ischemic heart disease and other diseases of the circulatory system